=== PATIENT | female | born 1935 | race Caucasian/White ===

== ENCOUNTER → 2017-06-15 | Outpatient (REF) | payer MEDICARE | LOC: M LAB REF 13:31 | DX: N39.0 Urinary tract infection, site not specified (principal) | CPT/HCPCS: 87086 ==

== ENCOUNTER 2017-08-26 10:47 | Day surgery (SDC) | payer MEDICARE ==
[2017-08-26] MEDS: NS 1,000 ML IV (11:00)
[2017-08-26] MEDS ORDERED: PROPOFOL 200 MG/20 ML VIAL As Ordered (12:56)
[2017-08-26] MEDS ORDERED: LIDOCAINE 2% INJ 100 MG/5 ML SDV (FOR ANES.) As Ordered (12:56)
== END 2017-08-26 13:51 | disposition home or self-care (01) ==
LOC: M OPP 10:47
DX: K57.30 Diverticulosis of large intestine without perforation or abscess without bleeding (principal); D12.3 Benign neoplasm of transverse colon; K62.5 Hemorrhage of anus and rectum; I10 Essential (primary) hypertension; R39.15 Urgency of urination; Z79.899 Other long term (current) drug therapy; Z88.5 Allergy status to narcotic agent; Z88.8 Allergy status to other drugs, medicaments and biological substances; Z78.0 Asymptomatic menopausal state; Z91.89 Other specified personal risk factors, not elsewhere classified; Z96.653 Presence of artificial knee joint, bilateral; Z98.890 Other specified postprocedural states; Z98.41 Cataract extraction status, right eye; Z98.42 Cataract extraction status, left eye; Z80.42 Family history of malignant neoplasm of prostate
CPT/HCPCS: 45385

== ENCOUNTER → 2018-01-27 | Outpatient (REF) | payer MEDICARE | LOC: M LAB REF 13:52 | DX: N39.0 Urinary tract infection, site not specified (principal) | CPT/HCPCS: 87186 ==

== ENCOUNTER → 2018-11-04 | Outpatient (CLI) | payer OTHER ==
[~2018-11-04] MED LIST: ACE65ERTAB PO; AMBIEN PO; ATENPOW PO; COUM1TAB18 PO; GABA-1171 PO; HYDR-4266 PO; HYDR100T; HYDR25TAB; HYDRALAZINE PO; HYDROCHLOROTHIZIDE PO; LOSA100T5 PO; LOSA50TA88; LYRI150C PO; METO1TAB32; MULT1TAB10 PO; OXYB5TAB10 PO; OXYC1TAB23 PO; TYLE325T5 PO; ZOLP10TA2 PO
--- NOTE | 2018-11-04 14:41 | NUR ---
Pt seen for Modified Barium Swallow Study d/t c/o of feeling like the foods she swallows is not going down. She reports that she often has to regurgitate and repeat the swallow. Pt reports that she often times feels like her "airway is partially closed" when she is laying down. Pt presents with esophageal phase dysphagia as characterized by pooling of solid bolus anterior of C6/C7. Recommend: Continue with regular solids and regular thin liquids. Prepare foods with extra sauces/gravies/condiments to keep foods moist. Alternate solids/liquids frequently throughout meal. End intake with liquids to clear pharynx and esophagus. Recommend: Esophagram. Pt reports that she believes she is scheduled for this procedure November 23 or . Addendum: 11/04/18 at 1450 by MYLENE PEOPLES [facility] Amended: Links added.
--- NOTE | 2018-11-07 07:47 | REP ---
Examination Requested: Cookie Swallow Reason For Exam: Dysphasia The procedure was performed by Lelia Mauro, DEANA, under the direct supervision of Dr. Trivedi. The procedure was performed with Lindy Sam from speech pathology present. 5 ml aliquots of thin, pudding, mixed fruit, soft food, hard food, and pill consistency barium was administered. No evidence of penetration or aspiration was visualized throughout the course of the exam. The detailed report of this examination will be provided by speech pathology. 1.8 minutes of fluoroscopy time was utilized for this procedure. Reviewed by DEANA Pinzon 11/04/2018 01:57 P Electronically Signed by Luis Trivedi MD 11/07/2018 07:38 A
== END ==
LOC: M ST 11:44
PROVIDERS: ATTEND Family Medicine
DX: R13.19 Other dysphagia (principal); J04.0 Acute laryngitis

== ENCOUNTER 2018-11-24 10:43 | Day surgery (SDC) | payer MEDICARE, OTHER ==
[~2018-11-24] VITALS: Ht 161.3 cm; Wt 78.0 kg
[~2018-11-24 10:43] MED LIST changes: +NS 1,000 ML IV ONE
[2018-11-24] MEDS ORDERED: LIDOCAINE 2% INJ 100 MG/5 ML SDV (FOR ANES.) As Ordered ONE (10:55)
[2018-11-24] MEDS ORDERED: PROPOFOL 200 MG/20 ML VIAL As Ordered ONE (10:55)
[2018-11-24] MEDS ORDERED: fentaNYL 100 MCG/2 ML INJECTION (J3010) As Ordered ONE (12:09)
--- NOTE | 2018-11-24 12:20 | ROOR ---
Patient Name: Marychuy Lan Procedure Date: 11/24/2018 11:59 AM Date of : 1935 Age: 83 Room: [facility] Gender: Female Note Status: Finalized Procedure: Upper GI endoscopy Indications: Dysphagia Providers: Ángel Rubalcava Jr, MD Referring MD: Ann Diaz DO Requesting Provider: Medicines: Propofol per Anesthesia Complications: No immediate complications. Procedure: Pre-Anesthesia Assessment: - Prior to the procedure, a History and Physical was performed, and patient medications and allergies were reviewed. The patient is competent. The risks and benefits of the procedure and the sedation options and risks were discussed with the patient. All questions were answered and informed consent was obtained. Patient identification and proposed procedure were verified by the physician and the nurse in the pre-procedure area and in the procedure room. Mental Status Examination: alert and oriented. Airway Examination: normal oropharyngeal airway and neck mobility. Respiratory Examination: clear to auscultation. CV Examination: normal. ASA Grade Assessment: II - A patient with mild systemic disease. After reviewing the risks and benefits, the patient was deemed in satisfactory condition to undergo the procedure. The anesthesia plan was to use moderate sedation / analgesia (conscious sedation). Immediately prior to administration of medications, the patient was re-assessed for adequacy to receive sedatives. The heart rate, respiratory rate, oxygen saturations, blood pressure, adequacy of pulmonary ventilation, and response to care were monitored throughout the procedure. The physical status of the patient was re-assessed after the procedure. The Endoscope was introduced through the mouth, and advanced to the second part of duodenum. The upper GI endoscopy was accomplished without difficulty. The patient tolerated the procedure well. Findings: The upper third of the esophagus, middle third of the esophagus and lower third of the esophagus were normal. LA Grade A (one or more mucosal breaks less than 5 mm, not extending between tops of 2 mucosal folds) esophagitis with no bleeding was found at the gastroesophageal junction. The cardia, gastric fundus, gastric body and gastric antrum were normal. Patchy moderate inflammation characterized by congestion (edema), erythema, friability and shallow ulcerations was found in the prepyloric region of the stomach. Biopsies were taken with a cold forceps for histology. The duodenal bulb, first portion of the duodenum and second portion of the duodenum were normal. Impression: - Normal upper third of esophagus, middle third of esophagus and lower third of esophagus. - LA Grade A reflux esophagitis. - Normal cardia, gastric fundus, gastric body and antrum. - Gastritis. Biopsied. - Normal duodenal bulb, first portion of the duodenum and second portion of the duodenum. Recommendation: - Discharge patient to home (ambulatory). - Return to my office as previously scheduled. Ángel Rubalcava MD Ángel Rubalcava Jr, MD 11/24/2018 12:20:15 PM Electronically signed by Ángel Rubalcava Jr, MD Number of Addenda: 0 Note Initiated On: 11/24/2018 11:59 AM Estimated Blood Loss: Estimated blood loss: none.
[2018-11-24 12:40] VITALS: BP 181/87
== END 2018-11-24 12:50 | disposition home or self-care (01) ==
LOC: M OPP 10:43
PROVIDERS: ATTEND Surgery
DX: K21.0 Gastro-esophageal reflux disease with esophagitis (principal); K29.70 Gastritis, unspecified, without bleeding; R13.10 Dysphagia, unspecified; Z79.899 Other long term (current) drug therapy; Z88.5 Allergy status to narcotic agent; Z88.6 Allergy status to analgesic agent
CPT/HCPCS: 43239; 88305; J3010

== ENCOUNTER → 2019-09-21 | Outpatient (REF) | payer MEDICARE ==
[~2019-09-21] MED LIST changes: +ACET1TAB55 PO; +AMLO10TA5 PO; +CEFT1INJ5 IV; +DULO1CAP5 PO; +GABA-843 PO; +HYDR25TAB PO; +LOSA100T50 PO; +NITR100C2 PO; -NS 1,000 ML IV ONE; +OMEP-221 PO
== END ==
LOC: M LAB REF 16:35
PROVIDERS: ATTEND Nurse Practitioner Family
DX: N39.0 Urinary tract infection, site not specified (principal)

== ENCOUNTER 2019-09-25 03:14 | Inpatient (IN) | payer MEDICARE ==
[~2019-09-25] VITALS: Ht 160 cm; Wt 76.3 kg
[~2019-09-25 03:14] MED LIST changes: -ACET1TAB55 PO; -AMLO10TA5 PO; -CEFT1INJ5 IV; -DULO1CAP5 PO; -GABA-843 PO; -HYDR25TAB PO; -LOSA100T50 PO; -NITR100C2 PO; -OMEP-221 PO
[2019-09-25] MEDS ORDERED: ALBUTEROL 90 MCG/ACT 8GM HFA INHALER INH PRN (06:00)
--- NOTE | 2019-09-25 06:55 | HPEPDOC ---
General Date of Admission 09/25/2019 Date of Service: September 25, 2019 Attending Physician: FILIBERTO HARMAN MD Chief Complaint The patient is a 84-year-old female admitted with a reason for visit of Pneumonia. Source: Patient, RN/MD Exam Limitations: No limitations Timing/Duration: Day(s) (3d) Associated Symptoms: Weakness History of Present Illness 84 yo W with history of GERD, HTN, hx of esophageal ulcer, trigeminal neuralgia who was recently started on macrobid for suspicion of a UTI after presenting with increasing urinary urgency and frequency, who presented to [facility] from home with fever to 101.6 reporting shaking chills, headache, and feeling unwell for 3 days, as well as subchronic dry cough since the beginning of the year really. At [place], her temp was 101.6 and she was otherwise normotensive and breathing comfortably on room air. Workup was notable for CT chest that showed possible LLL opacity, noted partly calcified soft tissue mediastinal mass 2.9cm x 1.6cm, while CBC was notable for WBC 2, hgb 13.7, platelet count 82, with 60% PMNs20% lymphs, Na 139, K 3.1 (repleted), Cr 0.9, UA with 3+ blood, 1+ protein, few bacteria with negative leuk esterase and nitrites, lactate 1, EKG with NSR, torponin negative, INR 1. She was transferred to [facility] with c/f LLL PNA, neutropenia with thrombocytopenia and incidental mediastinal soft tissue mass. On arrival, she went to the ED for covid-19 testing that is still pending. She is otherwise hemodynamically stable, afebrile at this time and breathing comfortably on room air. Home Medications Scheduled Losartan/Hydrochlorothiazide (Losartan-Hctz 100-25 mg Tab) 1 Each Tablet, 1 TAB PO DAILY, (Reported) Oxybutynin Chloride (Oxybutynin Chloride) 5 Mg Tab, 5 MG PO QHS, (Reported) Scheduled PRN Acetaminophen (Acetaminophen ER) 650 Mg Tablet.er, 650 MG PO TIDP PRN for PAIN, (Reported) Gabapentin (Gabapentin) 100 Mg Capsule, 100 MG PO TID PRN for PAIN, (Reported) Pregabalin (Lyrica) 150 Mg Capsule, 150 MG PO BID PRN for PAIN, (Reported) Zolpidem Tartrate (Zolpidem Tartrate) 10 Mg Tab, 10 MG PO QHSP PRN for SLEEP, (Reported) Allergies Coded Allergies: codeine (Verified Adverse Reaction, Unknown, stomach ache, 11/14/18) ibuprofen (Verified Adverse Reaction, Unknown, avoids d/t kidneys, 11/23/18) Past Medical History Medical History GERD, HTN, hx of esophageal ulcer, trigeminal neuralgia who was recently started on macrobid for suspicion of a UTI Surgical History buninectomy, bilateral cataract surgery, rotator cuff surgery bilateral, R total knee surgery Family History Significant Family History: No pertinent family hx Social History * Smoker: Denies Alcohol: Denies Drugs: denies Recent Travel/Sick Contacts: Denies: Recent travel, Recent sick contacts Psychosocial History: No pertinent psych hx Lives at her home with her adult daughter in [facility]. Otherwise independent at baseline. A-FIB/CHADSVASC A-FIB History Current/History of A-Fib/PAF?: No Current PO Anticoag Therapy: No Age/Risk Factor Scoring CHADSVASC: CHADSVASC Response (Comments) Value Age Risk Factor Age >/= 75 years old 2 Gender Risk Factor Female 1 Hx of CHF No 0 Hx of HTN Yes 1 Hx of Stroke/TIA/or VTE No 0 Hx of Diabetes No 0 Hx of Vascular Disease No 0 Total 4 Treatment Treatment ordered: NONE Reason Anticoagulant not given: Not indicated/[id number] Review of Systems Constitutional: Reports: Chills, Fever, Malaise, Weakness; Denies: Weight Loss Eyes: Denies: Pain, Vision change ENT: Reports: Head Aches; Denies: Ear Pain, Dysphagia, Sinus Congestion, Post Nasal Drip, Sore Throat, Epistaxis Skin: Denies: Rash, Lesions, Breakdown Pulmonary: Reports: Cough (dry, has been going on for months); Denies: Dyspnea, Pleuritic Chest Pain Cardiovascular: Denies: Chest Pain, Palpitations, Orthopnea, Paroxysmal Noc. Dyspnea, Lt Headedness Gastrointestinal: Denies: Nausea, Vomiting, Abdominal Pain, Diarrhea Genitourinary: Reports: Frequency; Denies: Dysuria, Incontinence, Retention Hematologic: Denies: Bruising, Bleeding Excessively Endocrine: Denies: Polydipsia, Polyphagia, Polyuria, Heat Intolerance, Cold Intolerance, Other Endocrine Sx Musculoskeletal: Reports: Back Pain; Denies: Neck Pain, Shoulder Pain, Arm Pain, Joint Pain Neurological: Denies: Weakness, Numbness, Change in speech, Confusion Psych: Reports: Mood Normal; Denies: Depression, Memory Issues Physical Examination General Exam: Positive: Alert, No Acute Distress Eye Exam: Positive: PERRLA, Conjunctiva & lids normal, EOMI; Negative: Sclera icteric ENT Exam: Positive: Atraumatic, Mucous membr. moist/pink, Pharynx Normal Neck Exam: Positive: Supple; Negative: JVD, thyromegaly Chest Exam: Positive: Clear to auscultation, Normal air movement Heart Exam: Positive: Rate Normal, Regular Rhythm, Normal S1, Normal S2; Negative: Murmurs, Rubs Abdomen Exam: Positive: Normal bowel sounds, Soft; Negative: Tenderness, Hepatospenomegaly Extremity Exam: Positive: Normal pulses; Negative: Clubbing, Cyanosis, Edema Skin Exam: Positive: Nl turgor and temperature, Other skin issue (pale); Negative: Breakdown, Lesion Neuro Exam: Positive: Normal Speech, Strength at 5/5 X4 ext, Normal Tone, Sensation Intact, Cranial Nerves 3-12 NL Psych Exam: Positive: Mental status NL, Mood NL, Oriented x 3 Vital Signs 167/76, 98.3, HR 56, 94% on RA Laboratory Data Labs 24H Laboratory Tests 2 09/25/19 05:06: Assessment/Plan 84 yo W with history of GERD, HTN, hx of esophageal ulcer, trigeminal neuralgia who was recently started on macrobid for suspicion of a UTI after presenting with increasing urinary urgency and frequency, who presented to [facility] from home with fever to 101.6 reporting shaking chills, headache, and feeling unwell for 3 days, as well as subchronic dry cough since the beginning of the year really and no transferred to [facility] with probable LLL PNA, newly noted incidental mediastinal soft tissue mas with microcalcifications and neutropenia and thrombocytopenia. LLL opacities c/f PNA, with fever, chills, rigors: -empiric ceftriaxone, azithro -blood cultures -UA/UCx -sputum Cx -Urine strep and legionella -f/u covid-19 testing -respiratory panel PCR was negative at [place] -[place] team to review imaging with radiology Mediastinal mass: c/f malignancy -review imaging with radiology -will need to discuss biopsy possible heme malignancy given neutropenia and thrombocytopenia (see below) neutropenia and thrombocytopenia: -covid-19 pending -peripheral smear -[facility] team to consider hematology consult, will likely require flow cytometry to begin given possibility of NHL/heme malignancy with mediastinal mass HTN: -to continue home meds if HDS and indicated Trigeminal neuralgia: -needs careful med rec. Reports that she is NOT taking tegretol which I would hold given neutropenia. -also noted to be on gabapentin and lyrica Urgency: -continue oxybutynin once med rec is complete DVT ppx: TEDs and SCDs Diet: regular Dispo: PCU Plan / VTE VTE Prophylaxis Ordered?: Yes FILIBERTO HARMAN MD September 25, 2019 06:55
[2019-09-25 08:00] VITALS: BP 142/90
[2019-09-25] MEDS ORDERED: CEFT1INJ5 IV (08:40)
[2019-09-25] MEDS ORDERED: OMEP-221 PO (08:40)
[2019-09-25] MEDS ORDERED: NITR100C2 PO (08:40)
[2019-09-25] MEDS ORDERED: DULO1CAP5 PO (08:40)
[2019-09-25] MEDS ORDERED: LOSA100T50 PO (08:40)
[2019-09-25] MEDS ORDERED: HYDR25TAB PO (08:40)
[2019-09-25] MEDS ORDERED: GABA-843 PO (08:40)
[2019-09-25 09:33] LABS: HEMATOCRIT 37.2 % (36.0-47.0); HEMOGLOBIN 12.5 g/dl (12.0-15.5); MEAN CORPUSCULAR HEMOGLOBIN 28.9 pg (27.0-33.0); MEAN CORPUSCULAR HGB CONC 33.6 g/dl (32.0-36.5); MEAN CORPUSCULAR VOLUME 85.9 fl (80.0-96.0); RED BLOOD COUNT 4.33 10^6/uL (4.00-5.40)
[2019-09-25] MEDS: AZITHROMYCIN INJ 500 MG, VIAL MATE ADAPTER 1 EACH in D5W 250 ML IV SCH (09:54)
[2019-09-25 10:00] LABS: ALBUMIN 2.5 GM/DL (3.2-5.2); ALT/SGPT 45 U/L (12-78); BILIRUBIN,TOTAL 0.5 MG/DL (0.2-1.0); BLOOD UREA NITROGEN 18 MG/DL (7-18); CARBON DIOXIDE LEVEL 30 MEQ/L (21-32); CHLORIDE LEVEL 101 MEQ/L (98-107); CREATININE FOR GFR 0.73 MG/DL (0.55-1.30); GLOMERULAR FILTRATION RATE > 60.0 (>32); GLUCOSE, FASTING 108 MG/DL (70-100); MAGNESIUM LEVEL 1.9 MG/DL (1.8-2.4); POTASSIUM SERUM 3.1 MEQ/L (3.5-5.1); SODIUM LEVEL 138 MEQ/L (136-145); TOTAL PROTEIN 5.5 GM/DL (6.4-8.2)
[2019-09-25 10:17] LABS: PLATELET COUNT, AUTOMATED 71 10^3/uL (150-450); WHITE BLOOD COUNT 1.9 10^3/uL (4.0-10.0)
[2019-09-25 10:26] LABS: EOSINOPHILS 10 % (0-3); LYMPHOCYTES 14 % (16-44); MONOCYTES 20 % (0-5); NEUTROPHILS 56 % (28-66); PLATELET ESTIMATE DECREASED (NORMAL)
[2019-09-25 10:28] LABS: OVALOCYTES 1+
[2019-09-25] MEDS ORDERED: POTASSIUM CHLORIDE 10 MEQ SR TABLET PO ONE (11:30)
[2019-09-25 12:00] VITALS: BP 128/70
[2019-09-25] MEDS: ACETAMINOPHEN TAB 650MG DOSE (2X325MG) PO PRN (12:37)
[2019-09-25] MEDS: cefTRIAXone SOD 2 GM in D5W MINI-BAG PLUS 50 ML IV SCH (12:38)
--- NOTE | 2019-09-25 19:02 | IPNPDOC ---
Text Note Date of Service The patient was seen on 09/25/19. NOTE Subjective: Patient continues to complain of bilateral flank pain. Patient de nied fever and chills. Patient denied chest pain, palpitations, diarrhea Objective: VITAL SIGNS: Please see below. GENERAL: awake, alert, NAD HEENT: NCAT, anicteric sclera, DEBBIE NECK: supple, no JVD CARDIOVASCULAR EXAMINATION: NS1S2, regular rate/rhythm RESPIRATORY EXAMINATION: Diminished lung sounds bilaterally ABDOMINAL EXAMINATION: positive bowel sounds x 4, NT EXTREMITIES: no cyanosis, clubbing, edema SKIN: warm, no rashes. NEUROLOGICAL EXAMINATION: AAO x 3, no motor/sensory deficits Patient is 84 years old female with past medical history of hypertension, GERD, esophageal ulcer was transferred from the [facility] with fever, chills, thrombocytopenia, leukopenia. Chest x-ray was done and showed LLL opacities suspicious for infiltrate and new mediastinal soft mass microcalcification. Sepsis Most likely secondary to possible pneumonia Patient has fever, leukopenia Ceftriaxone, azithromycin Blood culture IV fluid Left lower lobe pneumonia Most likely community-acquired covid-19 testing negative respiratory panel negative Mediastinal mass Lymphoma versus lung cancer versus metastases There is concern for malignancy I will discuss with product lister the incidental finding. Most likely patient will need biopsy Lymphopenia/thrombocytopenia Could be attributed to malignancy ANC showed mild neutropenia I will also check test for Lyme diseases and Ehrlichia Hypertension Blood pressures under control continue home meds Electrolyte imbalance Potassium replaced VS,Fishbone, I+O VS, Fishbone, I+O Laboratory Tests 09/25/19 08:46 Vital Signs Date Time Temp Pulse Resp B/P (MAP) Pulse Ox O2 Delivery O2 Flow Rate FiO2 09/25/19 12:00 97.3 61 17 128/70 (89) 93 Room Air KHOA DEVINE DO September 25, 2019 19:02
[2019-09-25] MEDS: DULoxetine 30 MG CAP (CYMBALTA) PO SCH (19:19)
[2019-09-25] MEDS: LOSARTAN 50MG TABLET PO SCH (19:19)
[2019-09-25 20:00] VITALS: BP 180/82
[2019-09-25] MEDS: GABAPENTIN 300 MG CAP PO SCH (20:58)
[2019-09-25] MEDS ORDERED: NITROFURANTOIN (MACROBID) 100 MG CAP PO SCH (21:00)
[2019-09-25] MEDS: zolPIDEM TARTRATE 5 MG TAB PO SCH (21:23)
[2019-09-26] VITALS (7 sets, daily range): BP systolic 140–190; BP diastolic 67–96
[2019-09-26] MEDS: LOSARTAN 50MG TABLET PO SCH (05:57)
[2019-09-26] MEDS: GASTROGRAFIN SOLUTION 30ML PO SCH ×2 (07:26→08:03)
[2019-09-26] MEDS ORDERED: hydroCHLOROthiazide 25 MG TAB PO SCH ×2 (07:40→09:00)
[2019-09-26] MEDS ORDERED: amLODIPine 10 MG TAB PO ONE (07:45)
[2019-09-26] MEDS: DULoxetine 30 MG CAP (CYMBALTA) PO SCH (08:28)
[2019-09-26 08:29] LABS: HEMATOCRIT 39.2 % (36.0-47.0); HEMOGLOBIN 13.6 g/dl (12.0-15.5); MEAN CORPUSCULAR HEMOGLOBIN 29.7 pg (27.0-33.0); MEAN CORPUSCULAR HGB CONC 34.7 g/dl (32.0-36.5); MEAN CORPUSCULAR VOLUME 85.6 fl (80.0-96.0); RED BLOOD COUNT 4.58 10^6/uL (4.00-5.40)
[2019-09-26] MEDS: AZITHROMYCIN INJ 500 MG, VIAL MATE ADAPTER 1 EACH in D5W 250 ML IV SCH (08:29)
[2019-09-26] MEDS: GABAPENTIN 300 MG CAP PO SCH ×4 (08:29→21:30)
[2019-09-26 08:33] LABS: PLATELET COUNT, AUTOMATED 95 10^3/uL (150-450)
[2019-09-26] MEDS ORDERED: ISOVUE-370 76% 100ML VIAL As Ordered ONE (08:45)
[2019-09-26 08:52] LABS: BLOOD UREA NITROGEN 18 MG/DL (7-18); CALCIUM LEVEL 8.2 MG/DL (8.8-10.2); CARBON DIOXIDE LEVEL 27 MEQ/L (21-32); CHLORIDE LEVEL 102 MEQ/L (98-107); CREATININE FOR GFR 0.72 MG/DL (0.55-1.30); GLOMERULAR FILTRATION RATE > 60.0 (>32); GLUCOSE, FASTING 108 MG/DL (70-100); POTASSIUM SERUM 3.6 MEQ/L (3.5-5.1); SODIUM LEVEL 138 MEQ/L (136-145)
[2019-09-26 09:21] LABS: EOSINOPHILS 4 % (0-3); LYMPHOCYTES 25 % (16-44); MONOCYTES 6 % (0-5); NEUTROPHILS 60 % (28-66)
[2019-09-26 09:22] LABS: PLATELET ESTIMATE DECREASED (NORMAL)
--- NOTE | 2019-09-26 10:45 | REP ---
CT CHEST WITH IV CONTRAST: TECHNIQUE: Axial contrast-enhanced images from the thoracic inlet to the upper abdomen using 100 mL Isovue-370 intravenous contrast material with multiplanar reformations. Lungs show mild diffuse interstitial fibrosis with bibasilar fibroatelectatic change. No consolidating infiltrate is seen. There are diffuse scattered tiny calcified granulomas. There are tiny calcified subcarinal lymph nodes. There are other nonenlarged subcentimeter mediastinal lymph nodes identified. There is on suspicious adenopathy in the axillary, mediastinal or hilar regions. There is an oval heterogeneous nodule of the isthmus of the thyroid 2.7 cm in diameter. There are several internal calcifications within this nodule. There are mild atherosclerotic calcifications of the thoracic aorta without aneurysm. The heart is normal in size. There is no pleural or pericardial effusion. There are moderate degenerative changes of the spine with no compression fracture. IMPRESSION: Chronic lung findings as discussed above. No consolidating infiltrate or suspicious mass or adenopathy. There is an oval heterogeneous nodule of the isthmus of the thyroid 2.7 cm in diameter containing several tiny calcifications. Further evaluation could be made with thyroid ultrasound. Electronically Signed by Narayan Beatty MD 09/26/2019 12:17 P
--- NOTE | 2019-09-26 10:55 | REP ---
CT ABDOMEN AND PELVIS WITH ORAL AND IV CONTRAST: TECHNIQUE: Axial contrast enhanced images from the lung bases to the pubic symphysis using 100 mL Isovue-370 intravenous contrast material with multiplanar reformations. The liver demonstrates a couple of tiny calcified granulomas but no evidence of mass. Spleen is normal in size with no intrinsic abnormality. The adrenal glands are normal. No pancreatic mass is seen. The kidneys demonstrate multiple subcentimeter hypodensities probably representing tiny cysts. There is a dominant cyst in the lower pole of the right kidney, which is mildly lobulated and measures 2.5 cm in diameter. In the mid to upper right kidney laterally, there is an ill-defined hypodense nodule 1.2 cm in diameter. This could represent a small cystic or solid nodule as it is not well characterized. In the left kidney, there is a hypodense nodule posteriorly 1.6 cm in diameter representing a complex cyst or solid nodule. There is no hydronephrosis. There is moderate atherosclerotic calcification of the abdominal aorta without aneurysm. There is no adenopathy or free air. No bowel wall thickening is seen. The appendix is normal. There is no bowel obstruction. There is extensive sigmoid diverticulosis without acute diverticulitis. Very small amount of free fluid is seen in the pelvis. Urinary bladder is not well distended and not well evaluated. There is a small calcified fibroid in the right uterus. Otherwise, no pelvis mass is seen. Gallbladder is mildly distended. There are two gallstones seen in the gallbladder measuring up to 1.4 cm in diameter. IMPRESSION: Two gallstones in the gallbladder. No definite gallbladder inflammation. Gallbladder is mildly distended. There is no definite biliary dilatation. Multiple small hypodensities throughout both kidneys likely representing cysts. There is an indeterminate nodule in the mid to upper right kidney laterally 1.2 cm in diameter and another in the mid posterior left kidney 1.6 cm in diameter. These could represent small solid nodules or complex cysts. Further evaluation could be made with a dedicated MRI of the kidneys with and without contrast. No adenopathy. No bowel obstruction. Sigmoid diverticulosis without acute diverticulitis. Small calcified fibroid in the right uterus. Very small amount of free fluid in the pelvis. Electronically Signed by Narayan Beatty MD 09/26/2019 12:18 P
[2019-09-26] MEDS: cefTRIAXone SOD 2 GM in D5W MINI-BAG PLUS 50 ML IV SCH (13:03)
[2019-09-26] MEDS: ACETAMINOPHEN TAB 650MG DOSE (2X325MG) PO PRN (13:05)
--- NOTE | 2019-09-26 13:14 | IPNPDOC ---
Text Note Date of Service The patient was seen on 09/26/19. NOTE Subjective: Patient complains of the neck pain, she stated that its chronic pain. Patient denied fever and chills. Patient denied chest pain, palpitations, diarrhea Objective: VITAL SIGNS: Please see below. GENERAL: awake, alert, NAD HEENT: NCAT, anicteric sclera, DEBBIE NECK: supple, no JVD CARDIOVASCULAR EXAMINATION: NS1S2, regular rate/rhythm RESPIRATORY EXAMINATION: Diminished lung sounds bilaterally ABDOMINAL EXAMINATION: positive bowel sounds x 4, NT EXTREMITIES: no cyanosis, clubbing, edema SKIN: warm, no rashes. NEUROLOGICAL EXAMINATION: AAO x 3, no motor/sensory deficits Patient is 84 years old female with past medical history of hypertension, GERD, esophageal ulcer was transferred from the [facility] with fever, chills, thrombocytopenia, leukopenia. Chest x-ray was done in the [facility] and showed possible LLL opacities suspicious for infiltrate. Sepsis Resolved Most likely secondary to possible pneumonia or upper respiratory viral infection Will check tickborne diseases panel Patient has fever, leukopenia Continue Ceftriaxone, azithromycin Blood culture negative IV fluid Left lower lobe pneumonia Most likely community-acquired covid-19 testing negative respiratory panel negative Mediastinal mass rule out Repeated CT of the chest with contrast did not confirm mediastinal mass or lymphadenopathy CT showed No consolidating infiltrate or suspicious mass or adenopathy. There is an oval heterogeneous nodule of the isthmus of the thyroid 2.7 cm in diameter containing several tiny calcifications. Thyroid nodule Suspicious for malignancy given its size and calcifications We'll check TSH if its normal will proceed with ultrasound Kidney nodules Incidental finding CT showed indeterminate nodule in the mid to upper right kidney laterally 1.2 cm in diameter and another in the mid posterior left kidney 1.6 cm in diameter. These could represent small solid nodules or complex cysts. Will check urine for cytology Will proceed with kidney MRI tomorrow Lymphopenia/thrombocytopenia Improved Could be attributed to malignancy ANC showed mild neutropenia Lyme diseases and Ehrlichia test pending Hypertension I added hydrochlorothiazide and Norvasc continue home meds Electrolyte imbalance Potassium replaced VS,Fishbone, I+O VS, Fishbone, I+O Laboratory Tests 09/26/19 08:13 Vital Signs Date Time Temp Pulse Resp B/P (MAP) Pulse Ox O2 Delivery O2 Flow Rate FiO2 09/26/19 12:00 97.6 76 18 148/88 (108) 97 Room Air I&O- Last 24 Hours up to 6 AM 09/26/19 06:00 Intake Total 1170 ml Output Total 950 ml Balance 220 ml KHOA DEVINE DO September 26, 2019 13:14
--- NOTE | 2019-09-26 14:44 | REP ---
THYROID ULTRASOUND: Real-time sonographic evaluation of the thyroid performed. Both lobes are mildly enlarged, right lobe measuring 5.7 x 2.6 x 2.1 cm and left lobe 5.6 x 2.0 x 1.6 cm. There are scattered tiny cysts bilaterally. A complex heterogeneous nodule, which is quite hypoechoic is seen in the isthmus measuring 1.3 x 1.2 x 1.7 cm. There are small calcifications within the nodule. There is distal acoustic shadowing. This appears suspicious and ultrasound-guided FNA is recommended. Medially in the lobe inferiorly, there is a hypoechoic nodule measuring 1.1 x 0.9 x 1.0 cm. No definite calcifications are seen within this nodule. This can be followed with ultrasound. IMPRESSION: Bilateral thyroid enlargement. Suspicious appearing nodule in the isthmus with a maximum diameter of 1.7 cm, containing small calcifications. Recommend ultrasound-sided FNA. Hypoechoic nodule inferior left lobe with a maximum diameter of 1.1 cm. Recommend followup ultrasound in 6 months. Electronically Signed by Narayan Beatty MD 09/26/2019 04:56 P
[2019-09-26] MEDS: zolPIDEM TARTRATE 5 MG TAB PO SCH (21:30)
[2019-09-27] VITALS: BP 170/80
[2019-09-27] MEDS: ACETAMINOPHEN TAB 650MG DOSE (2X325MG) PO PRN ×2 (00:32→17:26)
[2019-09-27 04:00] VITALS: BP 186/83
[2019-09-27 08:00] VITALS: BP 174/84
[2019-09-27] MEDS ORDERED: SLF 3 ML SYR IV PRN (08:00)
[2019-09-27 08:09] LABS: EOS # 0.4 10^3/uL (0.0-0.5); HEMATOCRIT 37.9 % (36.0-47.0); LYMPH # 0.8 10^3/uL (1.5-5.0); MEAN CORPUSCULAR HEMOGLOBIN 29.4 pg (27.0-33.0); MEAN CORPUSCULAR HGB CONC 34.3 g/dl (32.0-36.5); MEAN CORPUSCULAR VOLUME 85.7 fl (80.0-96.0); MONO # 0.9 10^3/uL (0.0-0.8); MONO % 22.2 % (0.0-5.0); NEUTROPHILS % 48.6 % (36.0-66.0); PLATELET COUNT, AUTOMATED 117 10^3/uL (150-450); RED BLOOD COUNT 4.42 10^6/uL (4.00-5.40)
[2019-09-27 08:32] LABS: BLOOD UREA NITROGEN 14 MG/DL (7-18); CALCIUM LEVEL 8.4 MG/DL (8.8-10.2); CARBON DIOXIDE LEVEL 30 MEQ/L (21-32); CHLORIDE LEVEL 103 MEQ/L (98-107); GLOMERULAR FILTRATION RATE > 60.0 (>32); GLUCOSE, FASTING 110 MG/DL (70-100); MAGNESIUM LEVEL 1.8 MG/DL (1.8-2.4); POTASSIUM SERUM 3.2 MEQ/L (3.5-5.1); SODIUM LEVEL 141 MEQ/L (136-145)
[2019-09-27] MEDS ORDERED: hydroCHLOROthiazide 25 MG TAB PO SCH (09:00)
[2019-09-27] MEDS ORDERED: amLODIPine 5 MG TAB PO SCH (09:00)
[2019-09-27] MEDS: hydrALAZINE 20MG/ML 1ML VIAL (J0360 PER 20MG) IV SCH ×4 (09:01→20:00)
[2019-09-27] MEDS: AZITHROMYCIN INJ 500 MG, VIAL MATE ADAPTER 1 EACH in D5W 250 ML IV SCH (09:53)
[2019-09-27] MEDS: GABAPENTIN 300 MG CAP PO SCH ×4 (09:53→20:25)
[2019-09-27] MEDS: amLODIPine 10 MG TAB PO SCH (09:54)
[2019-09-27] MEDS: DULoxetine 30 MG CAP (CYMBALTA) PO SCH (09:54)
[2019-09-27] MEDS: LOSARTAN 50MG TABLET PO SCH (09:54)
[2019-09-27] MEDS ORDERED: POTASSIUM CHLORIDE 10 MEQ SR TABLET PO ONE (10:00)
[2019-09-27] MEDS: cefTRIAXone SOD 2 GM in D5W MINI-BAG PLUS 50 ML IV SCH (11:41)
[2019-09-27] MEDS ORDERED: hydroCHLOROthiazide 25 MG TAB PO ONE (11:45)
[2019-09-27] MEDS ORDERED: HYDR25TAB PO (11:51)
[2019-09-27] MEDS ORDERED: AMLO10TA5 PO (11:51)
[2019-09-27 12:00] VITALS: BP 148/84
--- NOTE | 2019-09-27 12:23 | IPNPDOC ---
Text Note Date of Service The patient was seen on 09/27/19. NOTE Subjective: Patient complains of the neck pain, she stated that its chronic pain. No any acute events overnight Patient denied fever and chills. Patient denied chest pain, palpitations, diarrhea Objective: VITAL SIGNS: Please see below. GENERAL: awake, alert, NAD HEENT: NCAT, anicteric sclera, DEBBIE NECK: supple, no JVD CARDIOVASCULAR EXAMINATION: NS1S2, regular rate/rhythm RESPIRATORY EXAMINATION: Diminished lung sounds bilaterally ABDOMINAL EXAMINATION: positive bowel sounds x 4, NT EXTREMITIES: no cyanosis, clubbing, edema SKIN: warm, no rashes. NEUROLOGICAL EXAMINATION: AAO x 3, no motor/sensory deficits Patient is 84 years old female with past medical history of hypertension, GERD, esophageal ulcer was transferred from the [facility] with fever, chills, thrombocytopenia, leukopenia. Chest x-ray was done in the [facility] and showed possible LLL opacities suspicious for infiltrate. Sepsis Resolved Most likely secondary to possible pneumonia or upper respiratory viral infection Will check tickborne diseases panel Patient had fever, leukopenia on the day of admission Continue Ceftriaxone, azithromycin Blood culture negative IV fluid Left lower lobe pneumonia Most likely community-acquired covid-19 testing negative respiratory panel negative Mediastinal mass rule out Repeated CT of the chest with contrast did not confirm mediastinal mass or lymphadenopathy CT showed No consolidating infiltrate or suspicious mass or adenopathy. There i s an oval heterogeneous nodule of the isthmus of the thyroid 2.7 cm in diameter containing several tiny calcifications. Thyroid nodule Suspicious for malignancy given its size, normal TSH and calcifications Ultrasound showed Suspicious appearing nodule in the isthmus with a maximum diameter of 1.7 cm, containing small calcifications Hypoechoic nodule inferior left lobe with a maximum diameter of 1.1 cm. We'll proceed with nodules biopsy Kidney nodules Incidental finding CT showed indeterminate nodule in the mid to upper right kidney laterally 1.2 cm in diameter and another in the mid posterior left kidney 1.6 cm in diameter. These could represent small solid nodules or complex cysts. Will check urine for cytology Will proceed with kidney MRI tomorrow Lymphopenia/thrombocytopenia Improved Could be attributed to malignancy ANC showed mild neutropenia Lyme diseases and Ehrlichia test pending Hypertension urgency/hypertension I increased dose of Norvasc and hydrochlorothiazide Hydralazine IV when necessary with parameters Hydrolyzine by mouth with parameters Continue losartan I will check aldosterone/renin ratio Electrolyte imbalance Potassium replaced VS,Fishbone, I+O VS, Fishbone, I+O Laboratory Tests 09/27/19 07:48 Vital Signs Date Time Temp Pulse Resp B/P (MAP) Pulse Ox O2 Delivery O2 Flow Rate FiO2 09/27/19 09:54 68 174/84 09/27/19 08:00 98.0 20 94 Room Air I&O- Last 24 Hours up to 6 AM 09/27/19 06:00 Intake Total 1640 ml Output Total 1400 ml Balance 240 ml KHOA DEVINE DO September 27, 2019 12:23
[2019-09-27 12:33] LABS: BLOOD UREA NITROGEN 14 MG/DL (7-18); CALCIUM LEVEL 8.5 MG/DL (8.8-10.2); CARBON DIOXIDE LEVEL 31 MEQ/L (21-32); CHLORIDE LEVEL 102 MEQ/L (98-107); GLOMERULAR FILTRATION RATE > 60.0 (>32); GLUCOSE, FASTING 98 MG/DL (70-100); POTASSIUM SERUM 3.3 MEQ/L (3.5-5.1); SODIUM LEVEL 139 MEQ/L (136-145)
[2019-09-27] MEDS: **hydrALAZINE** 10 MG TAB PO SCH ×2 (13:36→17:27)
[2019-09-27] MEDS: SLF 3 ML SYR IV SCH ×2 (13:36→20:25)
[2019-09-27] MEDS ORDERED: LIDOCAINE 1% MDV 20ML VIAL As Ordered ONE (13:59)
[2019-09-27] MEDS ORDERED: PROHANCE 279.3MG/ML 15ML VIAL As Ordered ONE (14:41)
[2019-09-27 16:00] VITALS: BP 145/88
--- NOTE | 2019-09-27 16:27 | REP ---
ULTRASOUND-GUIDED THYROID ISTHMUS BIOPSY The procedure was performed under the direct supervision of Dr. Beatty. In the patient has a history of a suspicious appearing nodule in the isthmus with a maximum diameter of 1.7 cm seen on a previous ultrasound dated 09/26/2019. The risks and benefits of the procedure were explained to the patient and informed consent was obtained. The thyroid isthmus nodule was localized using ultrasound guidance. The skin was prepped and draped in a sterile fashion. 1% lidocaine was used as a local anesthetic. Using ultrasound guidance four fine-needle aspirations were obtained using 25 gauge needles. The patient tolerated the procedure well and there were no immediate complications. After the appropriate amount of monitored convalescence the patient was discharged from the department. Electronically Signed by DEANA Pate 09/27/2019 03:56 P Electronically Signed by Narayan Beatty MD 09/27/2019 04:19 P
--- NOTE | 2019-09-27 16:39 | REP ---
MRI ABDOMEN WITH AND WITHOUT CONTRAST: COMPARISON: CT abdomen and pelvis, 09/26/2019 Multiple sequences obtained in the axial and coronal planes prior to and following the intravenous administration of 15 mL ProHance. There are multiple cysts seen in both kidneys. At the site of the indeterminate nodule in the upper lateral right kidney, the nodule demonstrates hypointensity on T2-weighted images with somewhat hyperintensity on T1-weighted images. There is no enhancement. The findings are consistent with a small hemorrhagic cyst. This measures 1.1 cm. Another similar nodule is seen in the medial lower pole of the right kidney measuring 1 cm in diameter. At the site of the indeterminate nodule in the posterior mid left kidney, the nodule demonstrates same signal characteristics with no enhancement consistent with a hemorrhagic cyst measuring 1.4 cm in diameter. There is another subcentimeter hemorrhagic cyst in the lower pole of the left kidney. There is a benign cyst again seen in the anterior left kidney which is oval in shape with no enhancement, maximum diameter is 1.6 cm. Several cysts are seen in the lower pole of the right kidney, which do not enhance, the largest measures 2.7 cm. There is no hydronephrosis. Once again, there are two gallstones seen in a noninflamed gallbladder, which is mildly distended. There is no biliary dilatation. The visualized portions of the liver, spleen, adrenals, and pancreas are unremarkable. There is no adenopathy or free fluid in the visualized abdomen. IMPRESSION: Several cystic lesions in the kidneys are benign with no suspicious solid renal nodule. The indeterminate nodules on the recent CT scan correspond to hemorrhagic cysts. Electronically Signed by Narayan Beatty MD 09/28/2019 02:51 P
[2019-09-27 20:00] VITALS: BP 148/70
[2019-09-27] MEDS: zolPIDEM TARTRATE 5 MG TAB PO SCH (20:25)
[2019-09-28] VITALS: BP 144/74
[2019-09-28 04:00] VITALS: BP 162/70
[2019-09-28] MEDS: hydrALAZINE 20MG/ML 1ML VIAL (J0360 PER 20MG) IV SCH ×4 (04:00→11:48)
[2019-09-28 05:55] LABS: BASO # 0.1 10^3/uL (0.0-0.2); BASO % 1.3 % (0.0-1.0); EOS # 0.3 10^3/uL (0.0-0.5); EOS % 8.1 % (0.0-3.0); HEMATOCRIT 37.8 % (36.0-47.0); HEMOGLOBIN 12.8 g/dl (12.0-15.5); LYMPH # 0.9 10^3/uL (1.5-5.0); LYMPH % 23.9 % (24.0-44.0); MEAN CORPUSCULAR HEMOGLOBIN 29.1 pg (27.0-33.0); MEAN CORPUSCULAR HGB CONC 33.9 g/dl (32.0-36.5); MEAN CORPUSCULAR VOLUME 85.9 fl (80.0-96.0); MONO # 0.9 10^3/uL (0.0-0.8); MONO % 23.7 % (0.0-5.0); NEUTROPHILS # 1.6 10^3/uL (1.5-8.5); NEUTROPHILS % 42.7 % (36.0-66.0); PLATELET COUNT, AUTOMATED 131 10^3/uL (150-450); WHITE BLOOD COUNT 3.7 10^3/uL (4.0-10.0)
[2019-09-28] MEDS: SLF 3 ML SYR IV SCH ×2 (05:59→12:20)
[2019-09-28] MEDS: **hydrALAZINE** 10 MG TAB PO SCH ×3 (05:59→13:07)
[2019-09-28 06:14] LABS: BLOOD UREA NITROGEN 14 MG/DL (7-18); CALCIUM LEVEL 8.1 MG/DL (8.8-10.2); CARBON DIOXIDE LEVEL 30 MEQ/L (21-32); CHLORIDE LEVEL 101 MEQ/L (98-107); CREATININE FOR GFR 0.71 MG/DL (0.55-1.30); GLOMERULAR FILTRATION RATE > 60.0 (>32); GLUCOSE, FASTING 94 MG/DL (70-100); POTASSIUM SERUM 3.6 MEQ/L (3.5-5.1); SODIUM LEVEL 139 MEQ/L (136-145)
[2019-09-28 07:06] VITALS: BP 166/77
[2019-09-28] MEDS: ACETAMINOPHEN TAB 650MG DOSE (2X325MG) PO PRN (07:49)
[2019-09-28] MEDS: LOSARTAN 50MG TABLET PO SCH (07:49)
[2019-09-28] MEDS: AZITHROMYCIN INJ 500 MG, VIAL MATE ADAPTER 1 EACH in D5W 250 ML IV SCH (07:49)
[2019-09-28] MEDS: GABAPENTIN 300 MG CAP PO SCH ×2 (07:50→13:10)
[2019-09-28] MEDS: DULoxetine 30 MG CAP (CYMBALTA) PO SCH (07:50)
[2019-09-28] MEDS: amLODIPine 10 MG TAB PO SCH (07:50)
[2019-09-28] MEDS ORDERED: POTASSIUM CHLORIDE 10 MEQ SR TABLET PO ONE (08:00)
[2019-09-28] MEDS ORDERED: traMADol 50 MG TAB PO ONE (08:45)
[2019-09-28] MEDS ORDERED: hydroCHLOROthiazide 25 MG TAB PO SCH (09:00)
[2019-09-28] MEDS ORDERED: ACET1TAB55 PO (10:18)
[2019-09-28] MEDS: cefTRIAXone SOD 2 GM in D5W MINI-BAG PLUS 50 ML IV SCH (11:48)
[2019-09-28 13:07] VITALS: BP 120/58
[2019-09-28 14:07] LABS: BODY FLUID CULTURE Not indicated. (.); LEGIONELLA ANTIGEN URINE Negative (Negative); ORGANISM ID Not indicated. (.); SPECIMEN SOURCE Urine (.); URINE STREP PNEUMONIAE ANTIGEN Negative (Negative)
--- NOTE | 2019-09-28 17:47 | DS.PDOC ---
Discharge Summary General Date of Admission September 25, 2019 at 08:06 Date of Discharge 09/28/19 Discharge Summary PROCEDURES PERFORMED DURING STAY: [None]. ADMITTING DIAGNOSES: Sepsis Left lower lobe pneumonia Mediastinal mass rule out Thyroid nodule Lymphopenia/thrombocytopenia Kidney nodules Hypertension urgency/hypertension Electrolyte imbalance DISCHARGE DIAGNOSES: Sepsis Left lower lobe pneumonia Mediastinal mass rule out Thyroid nodule Lymphopenia/thrombocytopenia Kidney nodules Hypertension urgency/hypertension Electrolyte imbalance COMPLICATIONS/CHIEF COMPLAINT: Pneumonia. HISTORY OF PRESENT ILLNESS: 84 yo W with history of GERD, HTN, hx of esophageal ulcer, trigeminal neuralgia who was recently started on macrobid for suspicion of a UTI after presenting with increasing urinary urgency and frequency, who presented to [facility] from home with fever to 101.6 reporting shaking chills, headache, and feeling unwell for 3 days, as well as subchronic dry cough since the beginning of the year really. At [place], her temp was 101.6 and she was otherwise normotensive and breathing comfortably on room air. Workup was notable for CT chest that showed possible LLL opacity, noted partly calcified soft tissue mediastinal mass 2.9cm x 1.6cm, while CBC was notable for WBC 2, hgb 13.7, platelet count 82, with 60% PMNs20% lymphs, Na 139, K 3.1 (repleted), Cr 0.9, UA with 3+ blood, 1+ protein, few bacteria with negative leuk esterase and nitrites, lactate 1, EKG with NSR, torponin negative, INR 1. She was transferred to [facility] with c/f LLL PNA, neutropenia with thrombocytopenia and incidental mediastinal soft tissue mass. On arrival, she went to the ED for covid-19 testing that is still pending. She is otherwise hemodynamically stable, afebrile at this time and breathing comfortably on room air. HOSPITAL COURSE: During hospital stay the following issues addressed Patient developed sepsis secondary to pneumonia Patient had fever, leukopenia on the day of admission Patient received treatment with Ceftriaxone, azithromycin Blood culture negative Left lower lobe pneumonia Most likely community-acquired covid-19 testing negative respiratory panel negative Thyroid nodule Suspicious for malignancy given its size, normal TSH and calcifications Ultrasound showed Suspicious appearing nodule in the isthmus with a maximum diameter of 1.7 cm, containing small calcifications Hypoechoic nodule inferior left lobe with a maximum diameter of 1.1 cm. Biopsy was done, pathology : benign nodules Kidney nodules Incidental finding CT showed indeterminate nodule in the mid to upper right kidney laterally 1.2 cm in diameter and another in the mid posterior left kidney 1.6 cm in diameter. These could represent small solid nodules or complex cysts. MRI was done, showed benign cysts Lymphopenia/thrombocytopenia Improved Could be attributed to malignancy ANC showed mild neutropenia Lyme diseases and Ehrlichia test pending Hypertension urgency/hypertension I increased dose of Norvasc and hydrochlorothiazide Hydralazine IV when necessary with parameters Hydrolyzine by mouth with parameters Continue losartan \aldosterone/renin ratio pending Electrolyte imbalance Potassium replaced DISCHARGE MEDICATIONS: Please see below. ALLERGIES: Please see below. PHYSICAL EXAMINATION ON DISCHARGE: VITAL SIGNS: Please see below. GENERAL: awake, alert, NAD HEENT: NCAT, anicteric sclera, DEBBIE NECK: supple, no JVD CARDIOVASCULAR EXAMINATION: NS1S2, regular rate/rhythm RESPIRATORY EXAMINATION: Diminished lung sounds bilaterally ABDOMINAL EXAMINATION: positive bowel sounds x 4, NT EXTREMITIES: no cyanosis, clubbing, edema SKIN: warm, no rashes. NEUROLOGICAL EXAMINATION: AAO x 3, no motor/sensory deficits LABORATORY DATA: Please see below. IMAGING: [facility] NAME: SHUKRI DAUGHERTY DATE OF : 1935 AGE: 84 SEX: F REPORT #: [id number] ROOM: [facility] TECHNOLOGIST: [id number] DOCTOR: KHOA DEVINE DO Ordered for Date&Time: 09/27/19 1001 cc: [~ rep ct ivnm] Service Date&Time: This report is in Signed status. If this report is in a DRAFT status it has not yet been reviewed by the radiologist for accuracy. Thank you for having your radiology procedures performed at [facility] RADIOLOGY REPORT Date&Time printed: [~ rep prt dt last] [~ rep prt tm last] Page 2 of 2 [place] [address] RADIOLOGY REPORT This report is in Signed status. If this report is in a DRAFT status it has not yet been reviewed by the radiologist for accuracy. Thank you for having your radiology procedures performed at [facility] RADIOLOGY REPORT Date&Time printed: [~ rep prt dt last] [~ rep prt tm last] Page 1 of 2 MRI ABDOMEN WITH AND WITHOUT CONTRAST: COMPARISON: CT abdomen and pelvis, 09/26/2019 Multiple sequences obtained in the axial and coronal planes prior to and following the intravenous administration of 15 mL ProHance. There are multiple cysts seen in both kidneys. At the site of the indeterminate nodule in the upper lateral right kidney, the nodule demonstrates hypointensity on T2-weighted images with somewhat hyperintensity on T1-weighted images. There is no enhancement. The findings are consistent with a small hemorrhagic cyst. This measures 1.1 cm. Another similar nodule is seen in the medial lower pole of the right kidney measuring 1 cm in diameter. At the site of the indeterminate nodule in the posterior mid left kidney, the nodule demonstrates same signal characteristics with no enhancement consistent with a hemorrhagic cyst measuring 1.4 cm in diameter. There is another subcentimeter hemorrhagic cyst in the lower pole of the left kidney. There is a benign cyst again seen in the anterior left kidney which is oval in shape with no enhancement, maximum diameter is 1.6 cm. Several cysts are seen in the lower pole of the right kidney, which do not enhance, the largest measures 2.7 cm. There is no hydronephrosis. Once again, there are two gallstones seen in a noninflamed gallbladder, which is mildly distended. There is no biliary dilatation. The visualized portions of the liver, spleen, adrenals, and pancreas are unremarkable. There is no adenopathy or free fluid in the visualized abdomen. IMPRESSION: Several cystic lesions in the kidneys are benign with no suspicious solid renal nodule. The indeterminate nodules on the recent CT scan correspond to hemorrhagic cysts. Electronically Signed by Narayan Beatty MD 09/28/2019 02:51 P DD: Narayan Beatty MD, MD 09/27/19 1540 DT: LEEANN 09/27/19 1638 DS: MINOO 09/28/19 1451 09/28/19 1451 [~ rep ct labl] PROGNOSIS: Fair ACTIVITY: [As tolerated]. DIET: Cardiac DISPOSITION: 01 Home, Self-Care. ITEMS TO FOLLOWUP ON ON OUTPATIENT: With PCP DISCHARGE CONDITION: [Stable]. TIME SPENT ON DISCHARGE: Greater than 20minutes. Vital Signs/I&Os Vital Signs Date Time Temp Pulse Resp B/P (MAP) Pulse Ox O2 Delivery O2 Flow Rate FiO2 09/28/19 13:07 120/58 09/28/19 09:08 18 09/28/19 07:50 75 09/28/19 07:06 97.9 95 Room Air I&O- Last 24 Hours up to 6 AM 09/28/19 06:00 Intake Total 2525 ml Output Total 1875 ml Balance 650 ml Laboratory Data Labs 24H Laboratory Tests 2 09/28/19 05:30: Immature Granulocyte % (Auto) 0.3, Neutrophils (%) (Auto) 42.7, Lymphocytes (%) (Auto) 23.9L, Monocytes (%) (Auto) 23.7H, Eosinophils (%) (Auto) 8.1H, Basophils (%) (Auto) 1.3H, Neutrophils # (Auto) 1.6, Lymphocytes # (Auto) 0.9L, Monocytes # (Auto) 0.9H, Eosinophils # (Auto) 0.3, Basophils # (Auto) 0.1, Nucleated Red Blood Cells % (auto) 0.0, Anion Gap 8, Glomerular Filtration Rate > 60.0, Calcium Level 8.1L CBC/BMP Laboratory Tests 09/28/19 05:30 Microbiology Microbiology 09/25/19 Blood Culture - Preliminary, Resulted No Growth after 72 hours. All specime... 09/25/19 Blood Culture - Preliminary, Resulted No Growth after 72 hours. All specime... Discharge Medications Scheduled Amlodipine Besylate (Amlodipine Besylate) 10 Mg Tablet, 10 MG PO DAILY Duloxetine Hcl (Duloxetine HCl) 30 Mg Capsule.dr, 30 MG PO DAILY, (Reported) Gabapentin (Gabapentin) 300 Mg Capsule, 300 MG PO QID, (Reported) Hydrochlorothiazide (Hydrochlorothiazide) 25 Mg Tablet, 50 MG PO DAILY Losartan Potassium (Losartan Potassium) 100 Mg Tablet, 100 MG PO DAILY, (Reported) Omeprazole (Omeprazole) 40 Mg Capsule.dr, 40 MG PO BID, (Reported) Zolpidem Tartrate (Zolpidem Tartrate) 10 Mg Tab, 10 MG PO QHS, (Reported) Scheduled PRN Acetaminophen (Acetaminophen) 325 Mg Tablet, 650 MG PO Q4H PRN for PAIN OR FEVER Allergies Coded Allergies: codeine (Verified Adverse Reaction, Mild, stomach ache, 09/25/19) ibuprofen (Verified Adverse Reaction, Unknown, avoids d/t kidneys, 11/23/18) KHOA DEVINE DO September 28, 2019 17:47
== END 2019-09-28 14:00 | disposition home or self-care (01) | DRG 871 ==
LOC: ENRESERV 04:45 → M PCU 08:06
PROVIDERS: ADMIT Internal Medicine; ATTEND Internal Medicine
PROC: 0GBJ3ZX Excision of Thyroid Gland Isthmus, Percutaneous Approach, Diagnostic (ICD-10-PCS; principal; 2019-09-27 13:00)
DX: A41.9 Sepsis, unspecified organism (principal); J18.9 Pneumonia, unspecified organism; J98.59 Other diseases of mediastinum, not elsewhere classified; I10 Essential (primary) hypertension; G50.0 Trigeminal neuralgia; D70.9 Neutropenia, unspecified; D69.6 Thrombocytopenia, unspecified; I16.0 Hypertensive urgency; K21.9 Gastro-esophageal reflux disease without esophagitis; Z79.899 Other long term (current) drug therapy; Z88.5 Allergy status to narcotic agent; Z88.6 Allergy status to analgesic agent; E04.1 Nontoxic single thyroid nodule

== ENCOUNTER 2019-10-11 23:41 | Inpatient (IN) | payer MEDICARE ==
[~2019-10-11] VITALS: Ht 162.6 cm; Wt 83.2 kg
[~2019-10-11 23:41] MED LIST changes: +ACET1TAB55 PO; +AMLO10TA5 PO; +CEFT1INJ5 IV; +DULO1CAP5 PO; +GABA-843 PO; +HYDR25TAB PO; +LOSA100T50 PO; +NITR100C2 PO; +OMEP-221 PO
[2019-10-12] VITALS (10 sets, daily range): BP systolic 97–131; BP diastolic 52–62
[2019-10-12] MEDS ORDERED: MAALOX 30 ML SUSP *UDC PO PRN (02:15)
[2019-10-12] MEDS ORDERED: VANCOMYCIN HCL 500 MG in D5W MINI-BAG PLUS 100 ML IV SCH (02:15)
[2019-10-12] MEDS ORDERED: MOM 30ML SUSPENSION UDC PO PRN (02:15)
[2019-10-12] MEDS: NS 1,000 ML IV SCH ×3 (02:30→20:05)
--- NOTE | 2019-10-12 02:35 | REPVR ---
PROCEDURE INFORMATION: Exam: XR Chest, 1 View Exam date and time: 10/12/2019 2:28 AM Age: 84 years old Clinical indication: Shortness of breath; Additional info: Pna TECHNIQUE: Imaging protocol: XR of the chest Views: 1 view. COMPARISON: CT Chest with contrast 09/26/2019 9:05 AM FINDINGS: Lungs: Unremarkable. No consolidation. Pleural space: Unremarkable. No pleural effusion. No pneumothorax. Heart/Mediastinum: Unremarkable. No cardiomegaly. Bones/joints: Prominent scoliosis with advanced degenerative changes in the spine. IMPRESSION: No acute findings. Electronically signed by: Kenneth Solis On 10/12/2019 02:35:47 AM
[2019-10-12] MEDS: ACETAMINOPHEN TAB 650MG DOSE (2X325MG) PO PRN ×2 (02:40→19:38)
[2019-10-12] MEDS ORDERED: ACET1TAB55 PO (02:55)
[2019-10-12] MEDS ORDERED: AMLO10TA5 PO (02:55)
[2019-10-12] MEDS ORDERED: HYDR25TAB PO (02:55)
--- NOTE | 2019-10-12 02:59 | HPEPDOC ---
General Date of Admission Oct 12, 2019 at 02:04 Date of Service: Oct 12, 2019 Chief Complaint The patient is a 84-year-old female admitted with a reason for visit of Sepsis, Pneumonia. Source: Patient, RN notes reviewed, Old records Exam Limitations: No limitations Timing/Duration: Other (one day) Severity: Other (not applicable) Associated Symptoms: Other (fever, chills) History of Present Illness This is a 84 years old white female with past medical history of GERD, hypertension, esophageal ulcer, trigeminal neuralgia was transferred from [facility] this morning. According to [facility] patient was febrile with 101 but hypotensive, tachycardic and chest x-ray showed left-sided pneumonia. Patient received a Vanco, Zosyn IV fluids and magnesium supplement at [facility]. On presentation here, patient is stable. Complains of chills and fever. No chest pain, no shortness of breath, etc. Home Medications Scheduled Amlodipine Besylate (Amlodipine Besylate) 10 Mg Tablet, 10 MG PO DAILY Duloxetine Hcl (Duloxetine HCl) 30 Mg Capsule.dr, 30 MG PO DAILY, (Reported) Gabapentin (Gabapentin) 300 Mg Capsule, 300 MG PO QID, (Reported) Hydrochlorothiazide (Hydrochlorothiazide) 25 Mg Tablet, 50 MG PO DAILY Losartan Potassium (Losartan Potassium) 100 Mg Tablet, 100 MG PO DAILY, (Reported) Omeprazole (Omeprazole) 40 Mg Capsule.dr, 40 MG PO BID, (Reported) Zolpidem Tartrate (Zolpidem Tartrate) 10 Mg Tab, 10 MG PO QHS, (Reported) Scheduled PRN Acetaminophen (Acetaminophen) 325 Mg Tablet, 650 MG PO Q4H PRN for PAIN OR FEVER Allergies Coded Allergies: codeine (Verified Adverse Reaction, Mild, stomach ache, 09/25/19) ibuprofen (Verified Adverse Reaction, Unknown, avoids d/t kidneys, 11/23/18) Past Medical History Medical History GERD, hypertension, esophageal also trigeminal neuralgia Surgical History Bunionectomy, bilateral cataract surgery, rotator cuff surgery bilaterally and a right total knee surgery Family History Family history reviewed, no pertinent history Social History * Smoker: Denies Alcohol: Denies Drugs: denies A-FIB/CHADSVASC A-FIB History Current/History of A-Fib/PAF?: No Review of Systems Constitutional: Reports: Chills, Fever Eyes: Denies: Pain, Vision change, Conjunctivae inflammation, Eyelid inflammation, Redness, Other ENT: Denies: Head Aches, Ear Pain, Dysphagia, Sinus Congestion, Post Nasal Drip, Sore Throat, Epistaxis, Other Symptoms Skin: Denies: Rash, Lesions, Jaundice, Bruising, Itching, Dry, Breakdown, Nail Changes, Other Pulmonary: Denies: Dyspnea, Cough, Pleuritic Chest Pain, Other Symptoms Cardiovascular: Denies: Chest Pain, Palpitations, Orthopnea, Paroxysmal Noc. Dyspnea, Edema, Lt Headedness, Other Symptoms Gastrointestinal: Denies: Nausea, Vomiting, Abdominal Pain, Diarrhea, Constipation, Melena, Hematochezia, Other Symptoms Genitourinary: Denies: Dysuria, Frequency, Incontinence, Hematuria, Retention, Other Symptoms Hematologic: Denies: Bruising, Bleeding Excessively, Petecchia, Purpura, Enlarged Lymph Nodes, Other Hematologic Endocrine: Denies: Polydipsia, Polyphagia, Polyuria, Heat Intolerance, Cold Intolerance, Other Endocrine Sx Musculoskeletal: Denies: Neck Pain, Back Pain, Shoulder Pain, Arm Pain, Hand Pain, Leg Pain, Foot Pain, Joint Pain, Muscle Pain, Spasms, Other Symptoms Neurological: Denies: Weakness, Numbness, Incoordination, Change in speech, Confusion, Seizures, Other Symptoms Psych: Denies: Mood Normal, Anxiety, Depression, Memory Issues, Thoughts of Self Harm, Anger, Thoughts of Harming Other, Other Psych Physical Examination General Exam: Positive: Alert, Cooperative Eye Exam: Positive: PERRLA, Conjunctiva & lids normal ENT Exam: Positive: Atraumatic, Mucous membr. moist/pink Neck Exam: Positive: Supple Chest Exam: Positive: Other (, bilateral basal crackles) Heart Exam: Positive: Rate Normal, Normal S1 Abdomen Exam: Positive: Normal bowel sounds, Soft Extremity Exam: Positive: Normal pulses Neuro Exam: Positive: Strength at 5/5 X4 ext, Sensation Intact, Cranial Nerves 3-12 NL Psych Exam: Positive: Mood NL, Oriented x 3 Vital Signs Vital Signs Date Time Temp Pulse Resp B/P (MAP) Pulse Ox O2 Delivery O2 Flow Rate FiO2 10/12/19 01:46 100.3 86 18 117/52 (73) 95 Nasal Cannula 4.0 Laboratory Data Labs 24H Laboratory Tests 2 10/12/19 02:30: Urine Color YELLOW, Urine Appearance HAZY, Urine pH 5.0, Urine Specific [place] 1.013, Urine Protein NEGATIVE, Urine Glucose (UA) NEGATIVE, Urine Ketones NEGATIVE, Urine Blood 2+H, Urine Nitrite NEGATIVE, Urine Bilirubin NEGATIVE, Urine Urobilinogen 0.2, Urine Leukocyte Esterase NEGATIVE, Urine WBC (Auto) 2, Urine RBC (Auto) 6H, Urine Hyaline Casts (Auto) 0, Urine Bacteria (Auto) NEGATIVE, Urine Squamous Epithelial Cells 1, Urine Sperm (Auto) Problems (1) Sepsis Status: Acute Problem Text: 84 years old white female had presented to [facility] with shaking chills, dyspnea from 11:30 AM yesterday. Patient was admitted there with the sepsis secondary to pneumonia and she received IV vancomycin, Zosyn and magnesium supplements and was transferred to [facility] for critical care. As the patient to hospital. Here patient's temperatures 100.3, heart rate 86, blood pressure 117/52, respiratory rate of 18 and pulse ox to 95% on 4 L nasal cannula Admit patient to ICU with sepsis secondary to pneumonia IV fluids normal saline at 100 mL mL per hour Continue vancomycin and Zosyn Vanco level to be adjusted by pharmacy Repeat chest x-ray done here does not show any evidence of pneumonia Blood cultures, urine cultures have been ordered CBC, CMP pro calcitonin has been requested Diet regular Activity bed rest with bathroom privileges DVT prophylaxis with heparin (2) Pneumonia Status: Acute Problem Text: According to report from [facility] patient was diagnosed with left lower lobe pneumonia with WBC count of 12.2, and hypoxia. Repeat chest x-ray at [facility] does not show any infiltrate Pro calcitonin levels, CBC, CMP are pending Continue oxygen support Continue vancomycin and Zosyn until the pneumonia has ruled out (3) Trigeminal neuralgia Status: Chronic Problem Text: Continue home meds (4) HTN (hypertension) Status: Chronic Problem Text: Hold all her antihypertension meds secondary to history of hypertension and other hospital Once patient is clinically stable, then they can be restarted gently (5) GERD (gastroesophageal reflux disease) Status: Chronic Problem Text: Continue home meds Plan / VTE VTE Prophylaxis Ordered?: Yes DIEGO RUSH MD Oct 12, 2019 02:59
[2019-10-12] MEDS ORDERED: IPRATROPIUM 0.5MG/ALBUTEROL 2.5MG INH SOL UD 3ML (DUONEB)(J7620) NEB PRN (03:00)
[2019-10-12] MEDS ORDERED: VANCOMYCIN INTERMITTENT/PULSE DOSING BY CLINICAL PHARMACIST PER DOSING PROTOCOL XX SCH (03:15)
[2019-10-12 03:16] LABS: HEMATOCRIT 36.6 % (36.0-47.0); HEMOGLOBIN 12.1 g/dl (12.0-15.5); MEAN CORPUSCULAR HEMOGLOBIN 28.9 pg (27.0-33.0); MEAN CORPUSCULAR HGB CONC 33.1 g/dl (32.0-36.5); MEAN CORPUSCULAR VOLUME 87.4 fl (80.0-96.0); PLATELET COUNT, AUTOMATED 191 10^3/uL (150-450); RED BLOOD COUNT 4.19 10^6/uL (4.00-5.40); WHITE BLOOD COUNT 9.4 10^3/uL (4.0-10.0)
[2019-10-12 03:27] LABS: INR 1.21
[2019-10-12 03:45] LABS: ALBUMIN 2.4 GM/DL (3.2-5.2); BILIRUBIN,TOTAL 1.4 MG/DL (0.2-1.0); CALCIUM LEVEL 8.1 MG/DL (8.8-10.2); CREATININE FOR GFR 1.56 MG/DL (0.55-1.30); GLOMERULAR FILTRATION RATE 33.7 (>32); POTASSIUM SERUM 3.7 MEQ/L (3.5-5.1); TOTAL PROTEIN 6.1 GM/DL (6.4-8.2)
[2019-10-12] MEDS ORDERED: PIPERACILLIN/TAZOBACTAM SOD 2.25 GM in D5W MINI-BAG PLUS 50 ML IV SCH (06:00)
[2019-10-12 06:35] LABS: VANCOMYCIN RANDOM 5.7 UG/ML
[2019-10-12 07:29] LABS: C REACTIVE PROTEIN QUANTITATIV 7.54 MG/DL (0.00-0.30)
[2019-10-12] MEDS ORDERED: VANCOMYCIN HCL 1,000 MG, VIAL MATE ADAPTER 1 EACH in D5W 250 ML IV SCH (08:00)
[2019-10-12] MEDS: PANTOPRAZOLE 40MG TAB (PROTONIX) PO SCH (09:53)
[2019-10-12] MEDS: GABAPENTIN 300 MG CAP PO SCH ×2 (09:53→20:04)
[2019-10-12] MEDS: HEPARIN SOD (PORCINE) 5000UNITS/ML VIAL (J1644 PER 1000UNITS) SC SCH ×2 (09:54→20:05)
[2019-10-12] MEDS: cefTRIAXone SOD 2 GM in D5W MINI-BAG PLUS 50 ML IV SCH (09:57)
--- NOTE | 2019-10-12 12:31 | IPNPDOC ---
Date Seen The patient was seen on 10/12/19. Progress Note SUBJECTIVE: Patient was seen and examined this morning. There have been no adverse events reported overnight. The patient is a transfer from [facility] where she was noted to be hypotensive and hypoxic. Additionally she reportedly had an infiltrate on chest x-ray in the left lower lobe. Repeat imaging at [facility] does not demonstrate a pulmonary infiltrate. She was recently treated at [facility] in September for a left lower lobe infiltrate although imaging at that time was not impressive either. Today the patient does not have any complaints. She is on room air. She denies shortness of breath. She denies cough or sputum production. She has remained afebrile. OBJECTIVE PHYSICAL EXAMINATION: VITAL SIGNS: Please see below. GENERAL: Awake, alert, and oriented. Does not appear in any acute distress. S itting on edge of bed comfortably HEENT: Atraumatic. Normocephalic. Eyes are nonicteric. Trachea is midline. Mucous membranes are pink and moist CARDIOVASCULAR: Normal S1, S2. Regular rate and rhythm. No clicks rubs or murmurs RESPIRATORY: Clear vesicular breath sounds bilaterally. Good respiratory effort. No wheezes, rhonchi, or rales. No tactile fremitus or dullness to percussion. Symmetric chest expansion ABDOMINAL: Soft, nondistended. nontender. Normoactive bowel sounds throughout. EXTREMITIES: Trace bilateral lower extremity edema. Slightly more edematous in the right lower extremity. Full and equal pulses in bilateral upper and lower extremities NEUROLOGICAL: No focal neurological deficits PSYCHOLOGICAL: Mood and affect appear appropriate LABORATORY DATA, IMAGING STUDIES, MICROBIOLOGY: Please see below. DVT prophylaxis ordered?: Heparin SQ ASSESSMENT AND PLAN: Patient is an 84 year old female who presented to [facility] as a transfer from [facility] for hypotension and hypoxia. On arrival the patient was vitally stable. She did well overnight with no reported adverse events PROBLEMS: 1. Sepsis 2/2 to unknown source -Patient reported to be hypotensive and hypoxic at [facility]. She has been vitally stable overnight. Patient was suspected of having pneumonia at [facility] although chest x-ray at [facility] is negative for any acute process. She likely does not have a pneumonia. She has remained afebrile and without an elevation in WBC -Procalcitonin is pending. If elevated would suggest an infectious process. -CRP is slightly elevated -Patient is continued on empiric antibiotics. Have discontinued Vancomycin and Zosyn given her renal function. MRSA screen was negative. Will start Rocephin 2gm IV q24h -Blood cultures are currently pending 2. Acute Kidney Injury -Patient has an elevation in Cr from her baseline. Likely Pre-renal. Will avoid nephrotoxic medications -Continue IV hydration. Encourage PO intake 3. Transaminitis -Unknown etiology at this point in time. Patient was noted to be hypotensive although her transaminitis is not elevated enough to suggest shock liver. Will continue to trend her LFTs. -Will obtain Hepatitis Panel and EBV -Patient will likely need follow-up outpatient for repeat LFTs to ensure resolution 4. Lactic Acidosis -Patient had elevated lactic acid. Improvement with IV fluids. Will continue. Likely secondary to dehydration vs infection. 5. DVT Prophylaxis -Heparin SQ DISPOSITION: Likely discharge in 24-48 hour pending clinical improvement Attending attestation: I evaluated and examined the patient in person; I discussed the care with Resident in detail and agree with the plan above. VS, I&O, [facility] Vital Signs/I&O Vital Signs Date Time Temp Pulse Resp B/P (MAP) Pulse Ox O2 Delivery O2 Flow Rate FiO2 10/12/19 09:01 74 17 131/62 (85) 95 Room Air 10/12/19 08:00 97.4 10/12/19 06:00 1.0 I&O- Last 24 Hours up to 6 AM 10/12/19 06:00 Intake Total 350 ml Output Total 305 ml Balance 45 ml Laboratory Data 24H LABS Laboratory Tests 2 10/12/19 02:30: Urine Color YELLOW, Urine Appearance HAZY, Urine pH 5.0, Urine Specific [place] 1.013, Urine Protein NEGATIVE, Urine Glucose (UA) NEGATIVE, Urine Ketones NEGA TIVE, Urine Blood 2+H, Urine Nitrite NEGATIVE, Urine Bilirubin NEGATIVE, Urine Urobilinogen 0.2, Urine Leukocyte Esterase NEGATIVE, Urine WBC (Auto) 2, Urine RBC (Auto) 6H, Urine Hyaline Casts (Auto) 0, Urine Bacteria (Auto) NEGATIVE, Urine Squamous Epithelial Cells 1, Urine Sperm (Auto) , Methicillin-Resist S.aureus DNA PCR NOT DETECTED 10/12/19 03:08: Lactic Acid Level 4.3*H 10/12/19 03:09: Nucleated Red Blood Cells % (auto) 0.0, Prothrombin Time 15.0H, Prothromb Time International Ratio 1.21, Anion Gap 10, Glomerular Filtration Rate 33.7, Calcium Level 8.1L, Magnesium Level 2.2, Total Bilirubin 1.4H, Aspartate Amino Transf (AST/SGOT) 236H, Alanine Aminotransferase (ALT/SGPT) 150H, Alkaline Phosphatase 82, Total Protein 6.1L, Albumin 2.4L, Albumin/Globulin Ratio 0.6L 10/12/19 06:01: C-Reactive Protein, Quantitative 7.54H, Random Vancomycin Level 5.7 10/12/19 07:21: Lactic Acid Followup at 4 Hours 2.4*H CBC/BMP Laboratory Tests 10/12/19 03:09 Microbiology Microbiology 10/12/19 Blood Culture, Received Pending FRANCIA LYN DO Oct 12, 2019 12:31 GEOVANNA DELGADO MD Oct 13, 2019 13:24
[2019-10-12 13:02] LABS: MONO REFLEX EBV COMP NEGATIVE (NEGATIVE)
[2019-10-12] MEDS: zolPIDEM TARTRATE 5 MG TAB PO PRN (21:55)
[2019-10-13 06:00] VITALS: BP 114/71
[2019-10-13 06:11] LABS: HEMATOCRIT 33.8 % (36.0-47.0); HEMOGLOBIN 11.4 g/dl (12.0-15.5); MEAN CORPUSCULAR HEMOGLOBIN 28.9 pg (27.0-33.0); MEAN CORPUSCULAR HGB CONC 33.7 g/dl (32.0-36.5); MEAN CORPUSCULAR VOLUME 85.8 fl (80.0-96.0); PLATELET COUNT, AUTOMATED 114 10^3/uL (150-450); RED BLOOD COUNT 3.94 10^6/uL (4.00-5.40); WHITE BLOOD COUNT 2.2 10^3/uL (4.0-10.0)
[2019-10-13 06:37] LABS: ALBUMIN 2.1 GM/DL (3.2-5.2); BILIRUBIN,TOTAL 0.4 MG/DL (0.2-1.0); C REACTIVE PROTEIN QUANTITATIV 12.8 MG/DL (0.00-0.30); CALCIUM LEVEL 7.3 MG/DL (8.8-10.2); CREATININE FOR GFR 1.13 MG/DL (0.55-1.30); GLOMERULAR FILTRATION RATE 48.8 (>32); POTASSIUM SERUM 3.1 MEQ/L (3.5-5.1); TOTAL PROTEIN 4.9 GM/DL (6.4-8.2)
[2019-10-13 06:44] LABS: EOSINOPHILS 1 % (0-3); LYMPHOCYTES 25 % (16-44); METAMYELOCYTES 2 % (0-0); MONOCYTES 1 % (0-5); MYELOCYTES 1 % (0-0); NEUTROPHILS 58 % (28-66); PLATELET ESTIMATE DECREASED (NORMAL)
[2019-10-13 06:45] LABS: OVALOCYTES 1+; POLYCHROMASIA 1+
[2019-10-13] MEDS ORDERED: POTASSIUM CHLORIDE 10 MEQ SR TABLET PO ONE (08:00)
[2019-10-13] MEDS: HEPARIN SOD (PORCINE) 5000UNITS/ML VIAL (J1644 PER 1000UNITS) SC SCH ×2 (08:20→20:53)
[2019-10-13] MEDS: PANTOPRAZOLE 40MG TAB (PROTONIX) PO SCH (08:20)
[2019-10-13] MEDS: GABAPENTIN 300 MG CAP PO SCH ×2 (08:20→20:53)
[2019-10-13] MEDS: NS 1,000 ML IV SCH (08:21)
[2019-10-13 09:59] LABS: HEPATITIS B SURFACE ANTIGEN NEGATIVE (NEGATIVE)
[2019-10-13 10:26] LABS: HEPATITIS B CORE ANTIBODY IGM NEGATIVE (NEGATIVE); HEPATITIS C VIRUS ABY INDEX 0.2 INDEX (<0.8)
[2019-10-13 10:29] LABS: HEPATITIS A ANTIBODY IGM NEGATIVE (NEGATIVE)
[2019-10-13] MEDS: cefTRIAXone SOD 2 GM in D5W MINI-BAG PLUS 50 ML IV SCH (10:33)
[2019-10-13 12:10] VITALS: BP 116/68
[2019-10-13 14:00] VITALS: BP 143/79
[2019-10-13 17:07] LABS: EBV AB TO NUCLEAR ANTIGEN >600.0 U/mL (0.0-17.9); EBV VIRAL CAPSID AG IgM <36.0 U/mL (0.0-35.9)
--- NOTE | 2019-10-13 18:06 | IPNPDOC ---
Date Seen The patient was seen on 10/13/19. Progress Note SUBJECTIVE: Patient was seen and examined this morning. There have been no adverse events reported overnight. Interestingly, the patient appears to be pancytopenic today. Pro-calcitonin elevated 86.97. Patient herself has no complaints and has been afebrile. She denies any chest pain or shortness of breath. OBJECTIVE PHYSICAL EXAMINATION: VITAL SIGNS: Please see below. GENERAL: Awake, alert and oriented, appears in no acute distress, lying comfortably in bed HEENT: Atraumatic, normocephalic. Eyes are nonicteric. Trachea is midline CARDIOVASCULAR: Normal S1, S2, regular rate and rhythm. No clicks, rubs or murmurs. RESPIRATORY: Clear vesicular breath sounds bilaterally. Good respiratory effort. No wheezes, rhonchi, or rales. No tactile fremitus or dullness to percussion. Symmetric chest expansion ABDOMINAL: Soft, nondistended. nontender. Normoactive bowel sounds throughout. EXTREMITIES: Trace bilateral lower extremity edema. Slightly more edematous in the right lower extremity. Full and equal pulses in bilateral upper and lower extremities NEUROLOGICAL: No focal neurological deficits PSYCHOLOGICAL: Mood and affect appear appropriate LABORATORY DATA, IMAGING STUDIES, MICROBIOLOGY: Please see below. DVT prophylaxis ordered?: Heparin subcutaneous ASSESSMENT AND PLAN: Patient is a 84-year-old female who presents to [facility] as a direct transfer from her hospital for hypertension and hypoxia. On initial arrival to [facility]. The patient was finally stable. She had reportedly had a chest x-ray at her hospital was demonstrated pneumonia. However, repeat at [facility] was negative for any findings. Clinically, the patient has improved clinically. However, she is pancytopenic today with an elevation in her pro-calcitonin of 86.97. PROBLEMS: 1. Sepsis secondary to unknown source -Patient presented to [facility] as a direct transfer hospital for hypotension and hypoxia. She poorly had a pneumonia. However, chest x-ray at [facility] did not demonstrate this. Patient has remained afebrile since presentation. She currently has no complaints today and she's been normotensive -Pro-calcitonin, resulted 86.97, suggesting infectious process. [place] did trend up today to 12.80. Currently, she is continued on Rocephin 2 g every 24 hours. Have repeated pro-calcitonin results are pending. Additionally, repeat CRP tomorrow. -Preliminary blood cultures 1 are negative. Obtain fungal cultures today 2. Pancytopenia -Today the patient has a pancytopenia with 3 cell lines lineages decreased. It appears in the patient's previous hospitalization, she had similar findings of pancytopenia. The cause of her pancytopenia is unknown at this time as the differential remains wide. Certainly infectious processes can result in connor cytopenias including fungal and bacterial infections. Additionally, bone marrow infiltrative processes such as hematologic malignancies including leukemias, lymphomas, multiple myeloma, and mild dysplastic syndromes can lead to pancytopenia. Aplastic conditions such as viral illnesses such parvovirus or nutritional disorders such as B12 and folate deficiencies may be suspect as well -Peripheral blood smear was obtained which did demonstrate pancytopenia with rare immature myeloid cells. There were no blasts noted. . These findings may still be compatible with an infectious process such as a fungal or bacterial infection -Will order B12 and folate, uric acid, and LDH for tomorrow's labs. -Patient remains pancytopenic. She will need outpatient evaluation by Hematology/Oncology 2. Acute Kidney Injury -This has resolved with IV fluid hydration. We'll continue to monitor 3. Transaminitis -Patient's transaminases are trending down at this time. Unclear as the etiology. She was hypotensive at [facility] however, the elevations are not consistent with a shock liver picture. May be secondary to a infectious/inflammatory process. Will continue to trend. 4. Lactic Acidosis -Resolved 5. DVT Prophylaxis -Heparin SQ Attending attestation: I evaluated and examined the patient in person; I discussed the care with Resident in detail and agree with the plan above. VS, I&O, 24H, [place] Vital Signs/I&O Vital Signs Date Time Temp Pulse Resp B/P (MAP) Pulse Ox O2 Delivery O2 Flow Rate FiO2 10/13/19 14:00 98.1 75 18 143/79 (100) 95 Room Air 10/12/19 06:00 1.0 I&O- Last 24 Hours up to 6 AM 10/13/19 06:00 Intake Total 2710 ml Output Total 625 ml Balance 2085 ml Laboratory Data 24H LABS Laboratory Tests 2 10/13/19 05:35: Neutrophils (%) (Auto) , Nucleated Red Blood Cells % (auto) 0.0, Neutrophils 58, Band Neutrophils 12H, Lymphocytes (Manual) 25, Monocytes (Manual) 1, Eosinophils (Manual) 1, Metamyelocytes 2H, Myelocytes 1H, Polychromasia 1+, Ovalocytes 1+, Platelet Estimate DECREASED, Differential Slide Review Report, Peripheral Blood Smear Path Consult PERIPHERAL SMEAR, Anion Gap 7L, Glomerular Filtration Rate 48.8, Calcium Level 7.3L, Total Bilirubin 0.4#, Aspartate Amino Transf (AST/SGOT) 106H, Alanine Aminotransferase (ALT/SGPT) 116H, Alkaline Phosphatase 79, C-Reactive Protein, Quantitative 12.80H, Total Protein 4.9L, Albumin 2.1L, Albumin/Globulin Ratio 0.8L 10/13/19 12:09: CBC/BMP Laboratory Tests 10/13/19 05:35 Microbiology Microbiology 10/13/19 Blood Fungal Culture, Received Pending 10/12/19 Blood Culture - Preliminary, Resulted No growth after 24 hours . All specim... FRANCIA LYN DO Oct 13, 2019 18:06 GEOVANNA DELGADO MD Oct 16, 2019 08:18
[2019-10-13] MEDS: ACETAMINOPHEN TAB 650MG DOSE (2X325MG) PO PRN (18:39)
[2019-10-13] MEDS: zolPIDEM TARTRATE 5 MG TAB PO PRN (20:53)
[2019-10-13 22:00] VITALS: BP 141/77
[2019-10-14 06:00] VITALS: BP 152/94
[2019-10-14 07:22] LABS: HEMATOCRIT 34.1 % (36.0-47.0); HEMOGLOBIN 11.4 g/dl (12.0-15.5); MEAN CORPUSCULAR HEMOGLOBIN 28.9 pg (27.0-33.0); MEAN CORPUSCULAR HGB CONC 33.4 g/dl (32.0-36.5); MEAN CORPUSCULAR VOLUME 86.5 fl (80.0-96.0); RED BLOOD COUNT 3.94 10^6/uL (4.00-5.40); WHITE BLOOD COUNT 1.8 10^3/uL (4.0-10.0)
[2019-10-14 07:48] LABS: ALBUMIN 2.1 GM/DL (3.2-5.2); ALT/SGPT 82 U/L (12-78); BILIRUBIN,TOTAL 0.3 MG/DL (0.2-1.0); BLOOD UREA NITROGEN 37 MG/DL (7-18); CALCIUM LEVEL 7.7 MG/DL (8.8-10.2); CARBON DIOXIDE LEVEL 26 MEQ/L (21-32); CHLORIDE LEVEL 111 MEQ/L (98-107); CREATININE FOR GFR 0.85 MG/DL (0.55-1.30); GLOMERULAR FILTRATION RATE > 60.0 (>32); GLUCOSE, FASTING 94 MG/DL (70-100); LDH LACTATE DEHYDROGENASE 160 U/L (84-246); POTASSIUM SERUM 3.6 MEQ/L (3.5-5.1); SODIUM LEVEL 145 MEQ/L (136-145); TOTAL PROTEIN 5.1 GM/DL (6.4-8.2); URIC ACID 8.4 MG/DL (2.6-6.0)
[2019-10-14 08:03] LABS: PLATELET COUNT, AUTOMATED 68 10^3/uL (150-450)
[2019-10-14 08:12] LABS: EOSINOPHILS 20 % (0-3); LYMPHOCYTES 33 % (16-44); MONOCYTES 12 % (0-5); NEUTROPHILS 35 % (28-66); PLATELET ESTIMATE DECREASED (NORMAL)
[2019-10-14 08:13] LABS: ANISOCYTOSIS 1+; OVALOCYTES 1+
[2019-10-14] MEDS: GABAPENTIN 300 MG CAP PO SCH ×2 (09:09→20:35)
[2019-10-14] MEDS: PANTOPRAZOLE 40MG TAB (PROTONIX) PO SCH (09:09)
[2019-10-14] MEDS: HEPARIN SOD (PORCINE) 5000UNITS/ML VIAL (J1644 PER 1000UNITS) SC SCH ×2 (09:09→20:38)
[2019-10-14 10:01] LABS: PHOSPHORUS LEVEL 2.7 MG/DL (2.5-4.9)
[2019-10-14 10:06] LABS: BASO % 1.1 % (0.0-1.0); EOS # 0.3 10^3/uL (0.0-0.5); EOS % 17.1 % (0.0-3.0); LYMPH # 0.6 10^3/uL (1.5-5.0); LYMPH % 32.6 % (24.0-44.0); MONO # 0.2 10^3/uL (0.0-0.8); MONO % 12.3 % (0.0-5.0); NEUTROPHILS % 35.8 % (36.0-66.0)
[2019-10-14] MEDS: CEFEPIME HCL 2 GM in D5W MINI-BAG PLUS 50 ML IV SCH (12:46)
--- NOTE | 2019-10-14 13:50 | IPNPDOC ---
Date Seen The patient was seen on 10/14/19. Progress Note SUBJECTIVE: Patient was seen and examined this morning. There have been no adverse events reported overnight. She continues to be pancytopenic without a clear etiology as to be. An infectious process cannot be completed ruled out given her markedly elevated procalcitonin. Currently she denies any symptoms. She denies any shortness of breath or chest pain OBJECTIVE PHYSICAL EXAMINATION: VITAL SIGNS: Please see below. GENERAL: Awake, alert and oriented, appears in no acute distress, lying c omfortably in bed HEENT: Atraumatic, normocephalic. Eyes are nonicteric. Trachea is midline CARDIOVASCULAR: Normal S1, S2, regular rate and rhythm. No clicks, rubs or murmurs. RESPIRATORY: Clear vesicular breath sounds bilaterally. Good respiratory effort. No wheezes, rhonchi, or rales. No tactile fremitus or dullness to percussion. Symmetric chest expansion ABDOMINAL: Soft, nondistended. nontender. Normoactive bowel sounds throughout. EXTREMITIES: Trace bilateral lower extremity edema. Slightly more edematous in the right lower extremity. Full and equal pulses in bilateral upper and lower e xtremities NEUROLOGICAL: No focal neurological deficits PSYCHOLOGICAL: Mood and affect appear appropriate LABORATORY DATA, IMAGING STUDIES, MICROBIOLOGY: Please see below. DVT prophylaxis ordered?: Heparin SQ ASSESSMENT AND PLAN: Patient is a 84-year-old female who presents to [facility] as a direct transfer from her hospital for hypertension and hypoxia. On initial arrival to [facility]. The patient was finally stable. She had reportedly had a chest x-ray at her hospital was demonstrated pneumonia. However, repeat at [facility] was negative for any findings. C linically, the patient has improved. She continues to be pancytopenic with a marked elevation in her procalcitonin PROBLEMS: 1. Sepsis secondary to unknown source in setting of new onset neutropenia -Patient presented to [facility] as a direct transfer hospital for hypotension and hypoxia. She previously had a pneumonia. However, chest x- ray at [facility] did not demonstrate this. Patient has remained afebrile since presentation. She currently has no complaints today and she's been normotensive -Chest X-ray from [place] had noted a left lower lobe infiltrate. These findings are not demonstrated here. I have reviewed the chest X-ray from [place] and do not see any acute process. Additionally patients previous hospitalization it is noted a mediastinal mass on CT. This was not noted in the radiologist read. She does have a thyroid nodule for which she received an FNA during her previous hospitalization at [facility]. Neither of these findings seem to be compatible with her current process -Pro-calcitonin, resulted 86.97, suggesting infectious process. CRP of 12.80 yesterday. -Procalcitonin of 70.89 today -Preliminary blood cultures 1 are negative. Fungal cultures are pending -Patient was previously on Rocephin. She has developed pancytopenia. Particularly a moderate neutropenia with an absolute neutrophil count of 860.4 cells/micoliter. At this time will start Cefepime neutropenic coverage 2. Pancytopenia -Patient remains pancytopenic with 3 cell lines lineages decreased. The cause of her pancytopenia is unknown at this time as the differential remains wide. Ce rtainly infectious processes can result in pancytopenias including fungal and bacterial infections. Additionally, bone marrow infiltrative processes such as hematologic malignancies including leukemias, lymphomas, multiple myeloma, and myelodysplastic syndromes can lead to pancytopenia. Aplastic conditions such from viral illnesses such as parvovirus or nutritional disorders such as B12 and folate deficiencies may be suspect as well -Peripheral blood smear was obtained which did demonstrate pancytopenia with rare immature myeloid cells. There were no blasts noted. These findings may still be compatible with an infectious process such as a fungal or bacterial infection -ANC = 860.4 compatible with moderate neutropenia -ALC = 587 -ARC = 1.1 with a Reticulocyte index of 0.70 indicating bone marrow hypoproliferation -Uric Acid is slightly elevated at 8.4. LDH and Phosphorous are within normal range. -B12 and Folate levels are currently pending -Renal function remains appropriate with no increase in Cr. -Given her decreased reticulocyte count there is a degree of hypoprolif eration. Possibly secondary to infectious process although a malignant etiology cannot be ruled out -Patient will need Hematology/Oncology referral. Will await fungal cultures to result 2. Transaminitis -Transaminases are continuing to trend down. Likely elevated from initial insult. Unclear whether this is an infectious or inflammatory process. -Hepatitis panel negative. -EBV negative for acute infection 3. Hypertension -Patient takes Losartan 100mg and Hydrochlorothiazide daily. -Medications have been on hold as patient has been normotensive -Will resume tomorrow 4. DVT Prophylaxis -Heparin SQ Attending attestation: I evaluated and examined the patient in person; I discussed the care with Resident in detail and agree with the plan above. VS, I&O, 24H, Fishbone Vital Signs/I&O Vital Signs Date Time Temp Pulse Resp B/P (MAP) Pulse Ox O2 Delivery O2 Flow Rate FiO2 10/14/19 06:00 97.4 73 18 152/94 (113) 93 Room Air 10/12/19 06:00 1.0 I&O- Last 24 Hours up to 6 AM 10/14/19 05:59 Intake Total 1550 ml Output Total 200 ml Balance 1350 ml Laboratory Data 24H LABS Laboratory Tests 2 10/14/19 06:58: Immature Granulocyte % (Auto) 1.1, Neutrophils (%) (Auto) 35.8L, Lymphocytes (%) (Auto) 32.6, Monocytes (%) (Auto) 12.3H, Eosinophils (%) (Auto) 17.1H, Basophils (%) (Auto) 1.1H, Neutrophils # (Auto) , Lymphocytes # (Auto) 0.6L, Monocytes # (Auto) 0.2, Eosinophils # (Auto) 0.3, Basophils # (Auto) 0.0, Reticulocyte # (auto) 50.4, Immature Granulocyte # (Auto) 0.0, Nucleated Red Blood Cells % (auto) 0.0, Neutrophils 35, Lymphocytes (Manual) 33, Monocytes (Manual) 12H, Eosinophils (Manual) 20H, Anisocytosis 1+, Ovalocytes 1+, Platelet Estimate DECREASED, Immature Platelet Fraction 3.1, Percent Reticulocyte Count 1.3, Reticulocyte Hemoglobin Equivalent 29.7, Anion Gap 8, Glomerular Filtration Rate > 60.0, Uric Acid 8.4H, Calcium Level 7.7L, Phosphorus Level 2.7, Total Bilirubin 0.3, Aspartate Amino Transf (AST/SGOT) 51H, Alanine Aminotransferase (ALT/SGPT) 82H, Alkaline Phosphatase 77, Lactate Dehydrogenase 160, Total Protein 5.1L, Albumin 2.1L, Albumin/Globulin Ratio 0.7L CBC/BMP Laboratory Tests 10/14/19 06:58 Microbiology Microbiology 10/13/19 Blood Fungal Culture, Received Pending 10/12/19 Blood Culture - Preliminary, Resulted No Growth after 48 hours. All Specime... FRANCIA LYN DO Oct 14, 2019 13:50 GEOVANNA DELGADO MD Oct 16, 2019 08:27
[2019-10-14 14:00] VITALS: BP 152/92
[2019-10-14] MEDS ORDERED: amLODIPine 10 MG TAB PO ONE (15:30)
[2019-10-14] MEDS: zolPIDEM TARTRATE 5 MG TAB PO PRN (20:38)
[2019-10-14 22:00] VITALS: BP 165/86
[2019-10-15] MEDS: CEFEPIME HCL 2 GM in D5W MINI-BAG PLUS 50 ML IV SCH ×2 (00:08→11:50)
[2019-10-15] MEDS: ACETAMINOPHEN TAB 650MG DOSE (2X325MG) PO PRN (00:31)
[2019-10-15 06:00] VITALS: BP 166/87
[2019-10-15 06:31] LABS: HEMATOCRIT 37.5 % (36.0-47.0); HEMOGLOBIN 12.4 g/dl (12.0-15.5); MEAN CORPUSCULAR HEMOGLOBIN 28.3 pg (27.0-33.0); MEAN CORPUSCULAR HGB CONC 33.1 g/dl (32.0-36.5); MEAN CORPUSCULAR VOLUME 85.6 fl (80.0-96.0); RED BLOOD COUNT 4.38 10^6/uL (4.00-5.40); WHITE BLOOD COUNT 2.6 10^3/uL (4.0-10.0)
[2019-10-15 06:32] LABS: PLATELET COUNT, AUTOMATED 74 10^3/uL (150-450)
[2019-10-15 06:51] LABS: ALBUMIN 2.4 GM/DL (3.2-5.2); ALT/SGPT 76 U/L (12-78); BILIRUBIN,TOTAL 0.4 MG/DL (0.2-1.0); BLOOD UREA NITROGEN 22 MG/DL (7-18); CALCIUM LEVEL 8.1 MG/DL (8.8-10.2); CARBON DIOXIDE LEVEL 28 MEQ/L (21-32); CHLORIDE LEVEL 111 MEQ/L (98-107); CREATININE FOR GFR 0.87 MG/DL (0.55-1.30); GLOMERULAR FILTRATION RATE > 60.0 (>32); GLUCOSE, FASTING 92 MG/DL (70-100); POTASSIUM SERUM 3.5 MEQ/L (3.5-5.1); SODIUM LEVEL 146 MEQ/L (136-145); TOTAL PROTEIN 5.6 GM/DL (6.4-8.2)
[2019-10-15 07:13] LABS: ATYPICAL LYMPH 3 % (0-5); EOSINOPHILS 17 % (0-3); LYMPHOCYTES 38 % (16-44); MONOCYTES 13 % (0-5); NEUTROPHILS 29 % (28-66)
[2019-10-15 07:14] LABS: OVALOCYTES 1+; PLATELET ESTIMATE DECREASED (NORMAL)
[2019-10-15] MEDS ORDERED: POTASSIUM CHLORIDE 10 MEQ SR TABLET PO ONE (09:00)
[2019-10-15] MEDS: PANTOPRAZOLE 40MG TAB (PROTONIX) PO SCH (09:05)
[2019-10-15] MEDS: GABAPENTIN 300 MG CAP PO SCH ×2 (09:05→20:08)
[2019-10-15] MEDS: HEPARIN SOD (PORCINE) 5000UNITS/ML VIAL (J1644 PER 1000UNITS) SC SCH ×2 (09:06→20:08)
[2019-10-15] MEDS: amLODIPine 10 MG TAB PO SCH (09:08)
--- NOTE | 2019-10-15 11:41 | IPNPDOC ---
Date Seen The patient was seen on 10/15/19. Progress Note SUBJECTIVE: 84-year-old female with past medical history of hypertension is admitted for sepsis, unknown source. Patient reportedly had pneumonia and she was transferred to [facility], imaging and symptoms inconsistent with obvious pneumonia. Patient has significant elevated pro calcitonin, which has been improving with empiric antibiotics, patient has remained asymptomatic throughout hospitalization, without additional questions at this time. She denies any short of breath, chest pain, nausea, vomiting, diarrhea or constipation. 10 point review of systems negative except for above PHYSICAL EXAMINATION: VITAL SIGNS: Please see below. GENERAL: No distress HEENT: Normocephalic, atraumatic, moist mucous membranes NECK: Supple CARDIOVASCULAR EXAMINATION: S1, S2, no murmurs RESPIRATORY EXAMINATION: Clear to auscultation, no wheezing ABDOMINAL EXAMINATION: Soft, nontender, nondistended, positive bowel sounds EXTREMITIES: Range of motion intact SKIN: No rash NEUROLOGICAL EXAMINATION: Alert and oriented 3, no focal deficits PSYCHIATRIC EXAMINATION: Calm and cooperative LABORATORY DATA, IMAGING STUDIES, MICROBIOLOGY: Please see below. ASSESSMENT AND PLAN: 84-year-old female with past medical history of hypertension is admitted for sepsis. PROBLEMS: 1. Sepsis: Source unclear, possible pneumonia, pro calcitonin severely elevated, patient became neutropenic, continue cefepime, cultures pending, will monitor daily and adjust management as necessary, has remained asymptomatic throughout hospitalization. 2. Hypertension: Continue Norvasc, restarted home hydrochlorothiazide and losartan, no acute kidney injury has resolved. 3. Acute kidney injury: Resolved with IV hydration, will monitor creatinine. DVT Prophylaxis: Heparin SubQ GI prophylaxis - PPI VS, I&O, 24H, Fishbone Vital Signs/I&O Vital Signs Date Time Temp Pulse Resp B/P (MAP) Pulse Ox O2 Delivery O2 Flow Rate FiO2 10/15/19 09:08 78 177/90 10/15/19 06:00 98.4 17 94 Room Air 10/12/19 06:00 1.0 I&O- Last 24 Hours up to 6 AM 10/15/19 06:00 Intake Total 990 ml Output Total 700 ml Balance 290 ml Laboratory Data 24H LABS Laboratory Tests 2 10/15/19 06:09: Neutrophils (%) (Auto) , Neutrophils # (Auto) , Nucleated Red Blood Cells % (auto) 0.0, Neutrophils 29, Lymphocytes (Manual) 38, Monocytes (Manual) 13H, Eosinophils (Manual) 17H, Atypical Lymphocytes 3, Ovalocytes 1+, Platelet Estimate DECREASED, Anion Gap 7L, Glomerular Filtration Rate > 60.0, Calcium Level 8.1L, Total Bilirubin 0.4, Aspartate Amino Transf (AST/SGOT) 46H, Alanine Aminotransferase (ALT/SGPT) 76, Alkaline Phosphatase 83, Total Protein 5.6L, Albumin 2.4L, Albumin/Globulin Ratio 0.8L CBC/BMP Laboratory Tests 10/15/19 06:09 Microbiology Microbiology 10/13/19 Blood Fungal Culture, Received Pending 10/12/19 Blood Culture - Preliminary, Resulted No Growth after 72 hours. All specime... GEOVANNA DELGADO MD Oct 15, 2019 11:41
[2019-10-15] MEDS: DULoxetine 30 MG CAP (CYMBALTA) PO SCH (11:50)
[2019-10-15] MEDS: hydroCHLOROthiazide 25 MG TAB PO SCH (11:50)
[2019-10-15] MEDS: LOSARTAN 50MG TABLET PO SCH (11:54)
[2019-10-15 14:00] VITALS: BP 158/72
[2019-10-15] MEDS ORDERED: PREPARATION H OINTMENT (HEMORRHOID) TOP PRN (14:15)
[2019-10-15 22:00] VITALS: BP 168/88
[2019-10-16] MEDS: zolPIDEM TARTRATE 5 MG TAB PO PRN (00:14)
[2019-10-16] MEDS: CEFEPIME HCL 2 GM in D5W MINI-BAG PLUS 50 ML IV SCH ×2 (00:14→12:19)
[2019-10-16 06:00] VITALS: BP 167/89
[2019-10-16 08:10] LABS: BASO % 0.8 % (0.0-1.0); EOS # 0.4 10^3/uL (0.0-0.5); EOS % 7.6 % (0.0-3.0); HEMATOCRIT 37.7 % (36.0-47.0); HEMOGLOBIN 12.6 g/dl (12.0-15.5); LYMPH # 1.4 10^3/uL (1.5-5.0); LYMPH % 28.1 % (24.0-44.0); MEAN CORPUSCULAR HEMOGLOBIN 28.4 pg (27.0-33.0); MEAN CORPUSCULAR HGB CONC 33.4 g/dl (32.0-36.5); MEAN CORPUSCULAR VOLUME 84.9 fl (80.0-96.0); MONO # 0.5 10^3/uL (0.0-0.8); MONO % 9.6 % (0.0-5.0); NEUTROPHILS # 2.6 10^3/uL (1.5-8.5); NEUTROPHILS % 52.5 % (36.0-66.0); RED BLOOD COUNT 4.44 10^6/uL (4.00-5.40)
[2019-10-16 08:11] LABS: PLATELET COUNT, AUTOMATED 91 10^3/uL (150-450)
[2019-10-16] MEDS: DULoxetine 30 MG CAP (CYMBALTA) PO SCH (08:40)
[2019-10-16] MEDS: GABAPENTIN 300 MG CAP PO SCH (08:40)
[2019-10-16] MEDS: HEPARIN SOD (PORCINE) 5000UNITS/ML VIAL (J1644 PER 1000UNITS) SC SCH (08:41)
[2019-10-16] MEDS: hydroCHLOROthiazide 25 MG TAB PO SCH (08:41)
[2019-10-16] MEDS: PANTOPRAZOLE 40MG TAB (PROTONIX) PO SCH (08:41)
[2019-10-16 08:42] LABS: ALBUMIN 2.6 GM/DL (3.2-5.2); ALT/SGPT 90 U/L (12-78); BILIRUBIN,TOTAL 0.5 MG/DL (0.2-1.0); BLOOD UREA NITROGEN 16 MG/DL (7-18); C REACTIVE PROTEIN QUANTITATIV < 0.30 MG/DL (0.00-0.30); CALCIUM LEVEL 8.6 MG/DL (8.8-10.2); CARBON DIOXIDE LEVEL 28 MEQ/L (21-32); CHLORIDE LEVEL 106 MEQ/L (98-107); CREATININE FOR GFR 0.82 MG/DL (0.55-1.30); GLOMERULAR FILTRATION RATE > 60.0 (>32); GLUCOSE, FASTING 134 MG/DL (70-100); POTASSIUM SERUM 3.9 MEQ/L (3.5-5.1); SODIUM LEVEL 142 MEQ/L (136-145); TOTAL PROTEIN 6.2 GM/DL (6.4-8.2)
[2019-10-16 08:43] VITALS: BP 161/89
[2019-10-16] MEDS: LOSARTAN 50MG TABLET PO SCH (08:43)
[2019-10-16] MEDS: amLODIPine 10 MG TAB PO SCH (08:43)
[2019-10-16 10:46] LABS: VITAMIN B12 LEVEL 438 PG/ML (247-911)
[2019-10-16 10:47] LABS: FOLATE 10.1 NG/ML (>5.4)
[2019-10-16] MEDS ORDERED: LEVO750T13 PO (11:56)
[2019-10-16 14:00] VITALS: BP 148/81
--- NOTE | 2019-10-16 16:09 | DS.PDOC ---
Discharge Summary General Date of Admission Oct 12, 2019 at 02:04 Date of Discharge 10/16/2019 Primary Care Physician: Marielle Valencia. Attending Physician: GEOVANNA DELGADO MD Discharge Summary PROCEDURES PERFORMED DURING STAY: [None]. ADMITTING DIAGNOSES: 1. Sepsis 2. Pneumonia DISCHARGE DIAGNOSES: 1. Sepsis 2. Pancytopenia 3. Transaminitis COMPLICATIONS/CHIEF COMPLAINT: Sepsis, Pneumonia. HISTORY OF PRESENT ILLNESS: Patient is an 84-year-old female who had presented as a transfer from [facility] where she was noted to be hypotensive and hypoxic and presumed to be in sepsis. Patient had stated that she presented to [facility] as she was not feeling well and had fevers and chills. According to the medical record from [facility], the patient had received a chest x- ray and there was noted to be a left infiltrate. Patient was transferred to [facility] due to hypotension and hypoxia. On arrival to [facility], the patient was neither hypotensive nor hypoxic. A repeat chest x-ray did not demonstrate any acute cardiopulmonary process.The patient was placed in the ICU overnight and observed. She was subsequently transferred to [facility]. The patient was recently seen at [facility] on 09/28/2019 for a presumed left lower lobe pneumonia. During her previous admission she had admitted to similar symptoms including fever, chills and generalized weakness. During that hospitalization, the patient was noted to a leukopenia as well as thrombocytopenia. On the patient's current admission she had similar presenting symptoms at [facility] including fevers, chills, and generalized weakness. At [facility] the patient appeared well clinically. However, developed pancytopenia. Additionally, a pro-calcitonin, resulted in 86.97. Pro- calcitonin from her previous admission was 0.61. Her pancytopenia was thought to be suppressive secondary to infection as she had severe elevation in her pro- calcitonin. However, a clear source of infection was not determined. Patient's blood cultures remained negative, urinalysis was negative and chest x-ray was negative for any acute cardiopulmonary process and she was largely asymptomatic. Her pancytopenia continued for several days of her hospitalization and she became neutropenic with an absolute neutrophil count of 860. Additionally, the patient was slightly anemic with a absolute reticulocyte count of 1.1, and a re ticulocyte index of 0.70 indicating bone marrow hypoproliferation. The patient was started on cefepime for neutropenic coverage. She did remain afebrile during her hospitalization. On admission, the patient also had transaminitis, which did trend down during her stay. Exact etiology of her pancytopenia is unclear. Differential remains wide and can include infectious processes including bacterial infections as well as hematologic malignancies including leukemias, lymphomas, myelodysplastic syndromes as well as nutritional disorders including B12, folate deficiencies. A peripheral smear was obtained which demonstrated pancytopenia with rare immature myeloid cells/myelocytes but no blasts noted. She did have improvement on her day of discharge. However, given her previous hospitalization with similar findings, recommendation was made that the patient be evaluated by hematology oncology at outpatient follow-up. Patient was otherwise vitally stable and discharged on oral antibiotics with instructions to follow-up with her primary care physician as well as referral to hematology oncology for evaluation. Her pancytopenia DISCHARGE MEDICATIONS: Please see below. ALLERGIES: Please see below. PHYSICAL EXAMINATION ON DISCHARGE: VITAL SIGNS: Please see below. GENERAL: Awake, alert and oriented, appears in no acute distress, lying comfortably in bed HEENT: Atraumatic, normocephalic. Eyes are nonicteric. Trachea is midline CARDIOVASCULAR: Normal S1, S2, regular rate and rhythm. No clicks, rubs or murmurs. RESPIRATORY: Clear vesicular breath sounds bilaterally. Good respiratory effort. No wheezes, rhonchi, or rales. No tactile fremitus or dullness to percussion. Symmetric chest expansion ABDOMINAL: Soft, nondistended. nontender. Normoactive bowel sounds throughout. EXTREMITIES: Trace bilateral lower extremity edema. Slightly more edematous in the right lower extremity. Full and equal pulses in bilateral upper and lower extremities NEUROLOGICAL: No focal neurological deficits PSYCHOLOGICAL: Mood and affect appear appropriate LABORATORY DATA: Please see below. IMAGING: PROCEDURE INFORMATION: Exam: XR Chest, 1 View Exam date and time: 10/12/2019 2:28 AM Age: 84 years old Clinical indication: Shortness of breath; Additional info: Pna TECHNIQUE: Imaging protocol: XR of the chest Views: 1 view. COMPARISON: CT Chest with contrast 09/26/2019 9:05 AM FINDINGS: Lungs: Unremarkable. No consolidation. Pleural space: Unremarkable. No pleural effusion. No pneumothorax. Heart/Mediastinum: Unremarkable. No cardiomegaly. Bones/joints: Prominent scoliosis with advanced degenerative changes in the spine. IMPRESSION: No acute findings. Electronically signed by: Kenneth Solis On 10/12/2019 02:35:47 AM PROGNOSIS: Good ACTIVITY: [As tolerated]. DIET: As tolerated DISCHARGE PLAN: Patient is to be discharged home with follow-up with PCP in 7-10 days. She should have CBC completed outpatient to evaluate for resolution of pancytopenia. Additionally patient will need 3-6 months repeat liver profile to ensure transaminitis completely resolves. Regarding her pancytopenia patient will be referred to Hematology/Oncology for further evaluation and possible bone marrow biopsy. Patient is to continue Levofloxacin for 10 days. She is to return to the hospital if her symptoms return DISPOSITION: Home, Self-Care. DISCHARGE CONDITION: [Stable]. TIME SPENT ON DISCHARGE: Greater than 40 minutes. Vital Signs/I&Os Vital Signs Date Time Temp Pulse Resp B/P (MAP) Pulse Ox O2 Delivery O2 Flow Rate FiO2 10/16/19 14:00 98.1 67 18 148/81 (103) 97 Room Air 10/12/19 06:00 1.0 I&O- Last 24 Hours up to 6 AM 10/16/19 06:00 Intake Total 1540 ml Balance 1540 ml Laboratory Data Labs 24H Laboratory Tests 2 10/16/19 07:55: Immature Granulocyte % (Auto) 1.4, Neutrophils (%) (Auto) 52.5, Lymphocytes (%) (Auto) 28.1, Monocytes (%) (Auto) 9.6H, Eosinophils (%) (Auto) 7.6H, Basophils (%) (Auto) 0.8, Neutrophils # (Auto) 2.6, Lymphocytes # (Auto) 1.4L, Monocytes # (Auto) 0.5, Eosinophils # (Auto) 0.4, Basophils # (Auto) 0.0, Nucleated Red Blood Cells % (auto) 0.0, Immature Platelet Fraction 2.7, Anion Gap 8, Glomerular Filtration Rate > 60.0, Calcium Level 8.6L, Total Bilirubin 0.5, Aspartate Amino Transf (AST/SGOT) 70H, Alanine Aminotransferase (ALT/SGPT) 90H, Alkaline Phosphatase 96, C-Reactive Protein, Quantitative < 0.30, Total Protein 6.2L, Albumin 2.6L, Albumin/Globulin Ratio 0.7L CBC/BMP Laboratory Tests 10/16/19 07:55 Microbiology Microbiology 10/13/19 Blood Fungal Culture, Received Pending 10/12/19 Blood Culture - Preliminary, Resulted No Growth after 72 hours. All specime... Discharge Medications Scheduled Amlodipine Besylate (Amlodipine Besylate) 10 Mg Tablet, 10 MG PO DAILY, (Reported) Duloxetine Hcl (Duloxetine HCl) 30 Mg Capsule.dr, 30 MG PO DAILY, (Reported) Gabapentin (Gabapentin) 300 Mg Capsule, 300 MG PO QID, (Reported) Hydrochlorothiazide (Hydrochlorothiazide) 25 Mg Tablet, 50 MG PO DAILY, (Reported) Levofloxacin (Levofloxacin) 750 Mg Tablet, 750 MG PO DAILY Losartan Potassium (Losartan Potassium) 100 Mg Tablet, 100 MG PO DAILY, (Reported) Omeprazole (Omeprazole) 40 Mg Capsule.dr, 40 MG PO BID, (Reported) Zolpidem Tartrate (Zolpidem Tartrate) 10 Mg Tab, 10 MG PO QHS, (Reported) Scheduled PRN Acetaminophen (Acetaminophen) 325 Mg Tablet, 650 MG PO Q6H PRN for PAIN, (Reported) Allergies Coded Allergies: codeine (Verified Adverse Reaction, Mild, stomach ache, 09/25/19) ibuprofen (Verified Adverse Reaction, Unknown, avoids d/t kidneys, 11/23) FRANCIA LYN DO Oct 16, 2019 16:08
== END 2019-10-16 15:16 | disposition home health service (06) | DRG 871 ==
LOC: M ICU 10-12 02:04 → M MSPAV 10-12 11:58
PROVIDERS: ADMIT Internal Medicine; ATTEND Internal Medicine
DX: A41.9 Sepsis, unspecified organism (principal); J18.9 Pneumonia, unspecified organism; D61.818 Other pancytopenia; E87.2 Acidosis; N17.9 Acute kidney failure, unspecified; I10 Essential (primary) hypertension; R74.0 Nonspecific elevation of levels of transaminase and lactic acid dehydrogenase [LDH]; Z79.899 Other long term (current) drug therapy; Z88.5 Allergy status to narcotic agent; Z88.6 Allergy status to analgesic agent; K21.9 Gastro-esophageal reflux disease without esophagitis; G50.0 Trigeminal neuralgia

== ENCOUNTER → 2020-09-30 | Outpatient (CLI) | payer MEDICARE ==
[~2020-09-30] MED LIST changes: -AMLO10TA5 PO; +AMLO1TAB25 PO; +FLUC150T; +GABA-282 PO; -GABA-843 PO; +HYDR-3490; +HYDR-3490 PO; -HYDR25TAB; -HYDR25TAB PO; +LEVO750T13 PO; +VITA1CAP25
== END ==
LOC: M LABSMTC 09:47
PROVIDERS: ATTEND Anesthesiology
DX: Z01.812 Encounter for preprocedural laboratory examination (principal); Z11.52 Encounter for screening for COVID-19

== ENCOUNTER 2020-10-03 11:32 | Day surgery (SDC) | payer MEDICARE ==
[~2020-10-03] VITALS: Ht 157.5 cm; Wt 73.7 kg
[~2020-10-03 11:32] MED LIST changes: +NS 1,000 ML IV ONE
[2020-10-03] MEDS ORDERED: propofoL 200 MG/20 ML VIAL As Ordered ONE (12:39)
[2020-10-03] MEDS ORDERED: LIDOCAINE 2% 100MG/5ML SDV (FOR ANES.) As Ordered ONE (12:39)
[2020-10-03] MEDS ORDERED: LABETALOL 100MG/20ML VIAL As Ordered ONE (12:48)
--- NOTE | 2020-10-03 13:06 | ROOR ---
Patient Name: Marychuy Lan Procedure Date: 10/03/2020 12:21 PM Date of : 1935 Age: 85 Room: [facility] Gender: Female Note Status: Finalized Procedure: Upper GI endoscopy Indications: Generalized abdominal pain Providers: Ángel Rubalcava Jr, MD Referring MD: Ann Diaz DO Requesting Provider: Medicines: Propofol per Anesthesia Complications: No immediate complications. Procedure: Pre-Anesthesia Assessment: - Prior to the procedure, a History and Physical was performed, and patient medications and allergies were reviewed. The patient is competent. The risks and benefits of the procedure and the sedation options and risks were discussed with the patient. All questions were answered and informed consent was obtained. Patient identification and proposed procedure were verified by the physician and the nurse in the pre-procedure area and in the procedure room. Mental Status Examination: alert and oriented. Airway Examination: normal oropharyngeal airway and neck mobility. Respiratory Examination: clear to auscultation. CV Examination: normal. ASA Grade Assessment: II - A patient with mild systemic disease. After reviewing the risks and benefits, the patient was deemed in satisfactory condition to undergo the procedure. The anesthesia plan was to use moderate sedation / analgesia (conscious sedation). Immediately prior to administration of medications, the patient was re-assessed for adequacy to receive sedatives. The heart rate, respiratory rate, oxygen saturations, blood pressure, adequacy of pulmonary ventilation, and response to care were monitored throughout the procedure. The physical status of the patient was re-assessed after the procedure. The Endoscope was introduced through the mouth, and advanced to the second part of duodenum. The upper GI endoscopy was accomplished without difficulty. The patient tolerated the procedure well. The upper GI endoscopy was accomplished without difficulty. Findings: The upper third of the esophagus, middle third of the esophagus and lower third of the esophagus were normal. A medium-sized hiatal hernia was present. Diffuse moderately erythematous mucosa without bleeding was found in the gastric body, in the gastric antrum and in the prepyloric region of the stomach. Biopsies were taken with a cold forceps for histology. The duodenal bulb, first portion of the duodenum and second portion of the duodenum were normal. Impression: - Normal upper third of esophagus, middle third of esophagus and lower third of esophagus. - Medium-sized hiatal hernia. - Erythematous mucosa in the gastric body, antrum and prepyloric region of the stomach. Biopsied. - Normal duodenal bulb, first portion of the duodenum and second portion of the duodenum. Recommendation: - Discharge patient to home (ambulatory). - Return to my office as previously scheduled. Procedure Code(s): --- Professional --- 83842, Esophagogastroduodenoscopy, flexible, transoral; with biopsy, single or multiple Diagnosis Code(s): --- Professional --- K44.9, Diaphragmatic hernia without obstruction or gangrene K31.89, Other diseases of stomach and duodenum R10.84, Generalized abdominal pain CPT copyright 2019 [employer]. All rights reserved. The codes documented in this report are preliminary and upon calciner feeder review may be revised to meet current compliance requirements. Ángel Rubalcava MD Ángel Rubalcava Jr, MD 10/03/2020 1:05:48 PM Electronically signed by Ángel Rubalcava Jr, MD Number of Addenda: 0 Note Initiated On: 10/03/2020 12:21 PM Estimated Blood Loss: Estimated blood loss: none.
--- NOTE | 2020-10-03 13:26 | ROOR ---
Patient Name: Marychuy Lan Procedure Date: 10/03/2020 12:45 PM Date of : 1935 Age: 85 Room: [facility] Gender: Female Note Status: Finalized Procedure: Colonoscopy Indications: Generalized abdominal pain, Change in bowel habits Providers: Ángel Rubalcava Jr, MD Referring MD: Ann Diaz DO Requesting Provider: Medicines: Propofol per Anesthesia Complications: No immediate complications. Procedure: Pre-Anesthesia Assessment: - Prior to the procedure, a History and Physical was performed, and patient medications and allergies were reviewed. The patient is competent. The risks and benefits of the procedure and the sedation options and risks were discussed with the patient. All questions were answered and informed consent was obtained. Patient identification and proposed procedure were verified by the physician and the nurse in the pre-procedure area and in the procedure room. Mental Status Examination: alert and oriented. Airway Examination: normal oropharyngeal airway and neck mobility. Respiratory Examination: clear to auscultation. CV Examination: normal. ASA Grade Assessment: II - A patient with mild systemic disease. After reviewing the risks and benefits, the patient was deemed in satisfactory condition to undergo the procedure. The anesthesia plan was to use moderate sedation / analgesia (conscious sedation). Immediately prior to administration of medications, the patient was re-assessed for adequacy to receive sedatives. The heart rate, respiratory rate, oxygen saturations, blood pressure, adequacy of pulmonary ventilation, and response to care were monitored throughout the procedure. The physical status of the patient was re-assessed after the procedure. The Colonoscope was introduced through the anus and advanced to the cecum, identified by appendiceal orifice and ileocecal valve. The colonoscopy was performed without difficulty. The patient tolerated the procedure well. The quality of the bowel preparation was fair and poor. Findings: The rectum, recto-sigmoid colon, descending colon, transverse colon, ascending colon, cecum, appendiceal orifice and ileocecal valve appeared normal. Biopsies for histology were taken with a cold forceps from the right colon, transverse colon and descending colon for evaluation of microscopic colitis. Multiple small and large-mouthed diverticula were found in the sigmoid colon. Impression: - Preparation of the colon was fair. - Preparation of the colon was poor. - The rectum, recto-sigmoid colon, descending colon, transverse colon, ascending colon, cecum, appendiceal orifice and ileocecal valve are normal. Biopsied. - Diverticulosis in the sigmoid colon. Recommendation: - Discharge patient to home (ambulatory). - Repeat colonoscopy at appointment to be scheduled for screening purposes. Procedure Code(s): --- Professional --- 05870, Colonoscopy, flexible; with biopsy, single or multiple Diagnosis Code(s): --- Professional --- R10.84, Generalized abdominal pain R19.4, Change in bowel habit K57.30, Diverticulosis of large intestine without perforation or abscess without bleeding CPT copyright 2019 [employer]. All rights reserved. The codes documented in this report are preliminary and upon journal entry audit clerk review may be revised to meet current compliance requirements. Ángel Rubalcava MD Ángel Rubalcava Jr, MD 10/03/2020 1:26:39 PM Electronically signed by Ángel Rubalcava Jr, MD Number of Addenda: 0 Note Initiated On: 10/03/2020 12:45 PM Estimated Blood Loss: Estimated blood loss: none.
[2020-10-03 13:55] VITALS: BP 167/73
== END 2020-10-03 14:08 | disposition home or self-care (01) ==
LOC: M OPP 11:32
PROVIDERS: ATTEND Surgery
DX: K57.30 Diverticulosis of large intestine without perforation or abscess without bleeding (principal); K52.832 Lymphocytic colitis; R19.4 Change in bowel habit; R10.84 Generalized abdominal pain; K44.9 Diaphragmatic hernia without obstruction or gangrene; K31.89 Other diseases of stomach and duodenum; Z79.899 Other long term (current) drug therapy; Z88.5 Allergy status to narcotic agent; Z88.8 Allergy status to other drugs, medicaments and biological substances

== ENCOUNTER → 2021-05-27 | Outpatient (REF) | payer MEDICARE ==
[~2021-05-27] MED LIST changes: +LOSA100T45 PO; -LOSA100T50 PO; +LOSA50TA28; -LOSA50TA88; -NS 1,000 ML IV ONE; -OMEP-221 PO; +OMEP40CA5 PO
== END ==
LOC: M LAB REF 16:58
PROVIDERS: ATTEND Nurse Practitioner Family
DX: E83.42 Hypomagnesemia (principal)

== ENCOUNTER → 2022-01-01 | Outpatient (REF) | payer MEDICARE ==
[~2022-01-01] MED LIST changes: -FLUC150T; +FLUC150T9; +LEVO1TAB40 PO; -LEVO750T13 PO
== END ==
LOC: M LAB REF 16:48
PROVIDERS: ATTEND Nurse Practitioner Family
DX: N39.0 Urinary tract infection, site not specified (principal)

== ENCOUNTER → 2023-03-30 | Outpatient (CLI) | payer MEDICARE ==
[~2023-03-30] MED LIST changes: -LOSA100T45 PO; +LOSA100T46 PO; -OXYB5TAB10 PO; +OXYB5TAB11 PO
== END ==
LOC: M PLAIMG 08:53
PROVIDERS: ATTEND Orthopaedic Surgery
DX: M47.816 Spondylosis without myelopathy or radiculopathy, lumbar region (principal); M47.814 Spondylosis without myelopathy or radiculopathy, thoracic region; M41.9 Scoliosis, unspecified

== ENCOUNTER → 2023-04-16 | Outpatient (CLI) | payer MEDICARE | LOC: M RAD 10:05 | PROVIDERS: ATTEND Physical Medicine & Rehabilitation | DX: M41.9 Scoliosis, unspecified (principal); M47.9 Spondylosis, unspecified | CPT/HCPCS: 78306; A9503 ==

== ENCOUNTER → 2023-06-24 | Outpatient (REF) | payer MEDICARE ==
[~2023-06-24] MED LIST changes: -OXYB5TAB11 PO; +OXYB5TAB14 PO
[2023-06-24 14:27] LABS: APPEARANCE, URINE CLEAR (CLEAR); BACTERIA, URINE AUTO NEGATIVE (NEGATIVE); BILIRUBIN, URINE AUTO NEGATIVE (NEGATIVE); BLOOD, URINE BLOOD 1+ (NEGATIVE); COLOR, URINE YELLOW (YELLOW); GLUCOSE, URINE (UA) AUTO NEGATIVE (NEGATIVE); KETONE, URINE AUTO NEGATIVE (NEGATIVE); LEUKOCYTE ESTERASE, URINE AUTO NEGATIVE (NEGATIVE); NITRITE, URINE AUTO NEGATIVE (NEGATIVE); PROTEIN, URINE AUTO 1+ mg/dL (NEGATIVE); RBC, URINE AUTO 1 /HPF (0-3); SPECIFIC GRAVITY URINE AUTO 1.008 (1.002-1.035); SQUAMOUS EPITHELIAL CELL UR AU 0 /HPF (0-6); UROBILINOGEN, URINE AUTO 0.2 mg/dL (0.0-2.0); WBC, URINE AUTO 0 /HPF (0-3)
== END ==
LOC: M SMT 13:12
PROVIDERS: ATTEND Nurse Practitioner Family
DX: R31.29 Other microscopic hematuria (principal)